=== PATIENT | male | born 1980 | race Caucasian/White ===

== ENCOUNTER → 2017-10-06 15:32 | Outpatient (CLI) | payer MEDICAID, SELFPAY ==
--- NOTE | 2017-10-06 15:43 | XR_ITS ---
XR chest 2V HISTORY: ITS.REASON: COUGH VITAMIN B12 DEFICENCY ORDERING PHYSICIAN: Darrion Arita MD PATIENT AGE: 36 years COMPARISON: 08/30/2014 FINDINGS: The cardiomediastinal silhouette and pulmonary vascularity are within normal limits. The lungs are clear without infiltrates, suspicious nodules, or pleural effusions. No acute bony abnormalities. IMPRESSION: Negative chest, no acute finding
[2017-10-06 16:13] LABS: Alanine Aminotransferase 77 U/L (12-78); Albumin Level 4.2 gm/dL (3.4-5.0); Albumin/Globulin Ratio 1.2 (1.1-1.8); Alkaline Phosphatase 96 U/L (46-116); Anion Gap 13.2 mEq/L (5-15); Aspartate Amino Transferase 38 U/L (15-37); Bilirubin,Total 0.7 mg/dL (0.2-1.0); Blood Urea Nitrogen 14 mg/dL (7-18); Calcium 9.4 mg/dL (8.5-10.1); Carbon Dioxide 28 mmol/L (21.0-32.0); Chloride 101 mmol/L (98-107); Creatinine,Serum 1.03 mg/dL (0.70-1.30); Estimated Glomerular Filt Rate 82 ml/min (>60); GFR (African American) 99 ML/MIN (>60); Globulin 3.6 gm/dl (1.3-3.2); Glucose 91 mg/dL (74-106); Potassium 4.2 mmoL/L (3.5-5.1); Sodium 138 mmol/L (136-145); Total Protein,Serum 7.8 gm/dL (6.4-8.2)
[2017-10-06 16:34] LABS: Basophils % 0.5 % (0.1-2.0); Eosinophils % 0.5 % (0.1-12.0); Hematocrit 54.1 % (42.0-52.0); Lymphocytes # 1.9 K/mm3 (0.7-4.5); Lymphocytes % 21.2 K/mm3 (10-50); Mean Corpuscular HGB Conc 34.7 g/dL (31.8-35.4); Mean Corpuscular Hemoglobin 32.4 pg (27.0-31.2); Mean Corpuscular Volume 93.2 fl (80-94); Mean Platelet Volume 7.6 fl (7.4-10.4); Monocytes # 0.7 K/mm3 (0.1-1.0); Monocytes % 8.1 % (1.7-9.3); Neutrophils # 6.2 K/mm3 (1.8-7.8); Neutrophils % 69.8 % (37.0-80.0); Platelet Count 289 K/mm3 (142-424); Red Cell Distribution Width 11.7 % (11.5-17.5); White Blood Count 8.8 K/mm3 (4.8-10.8)
[2017-10-06 16:35] LABS: Hemoglobin 18.6 g/dL (14.1-18.0)
[2017-10-10 15:37] LABS: Alpha-1-Antitrypsin 121 mg/dL (90-200); Vitamin B12 605 pg/mL (232-1245)
== END ==
PROVIDERS: PCP Internal Medicine Adolescent Medicine; Visit Provider Internal Medicine Adolescent Medicine
DX: R05 Cough (principal); E53.8 Deficiency of other specified B group vitamins; Z83.49 Family history of other endocrine, nutritional and metabolic diseases
CPT/HCPCS: 36415; 71046; 80053; 82103; 82607; 85025

== ENCOUNTER → 2018-04-11 17:18 | Outpatient (CLI) | payer MEDICAID, SELFPAY ==
[2018-04-11 17:34] LABS: Basophils # 0.1 K/mm3 (0-0.2); Basophils % 0.6 % (0.1-2.0); Eosinophils # 0.1 K/mm3 (0.0-0.4); Hematocrit 52.6 % (42.0-52.0); Hemoglobin 17.8 g/dL (14.1-18.0); Lymphocytes # 1.7 K/mm3 (0.7-4.5); Lymphocytes % 21.9 K/mm3 (10-50); Mean Corpuscular HGB Conc 33.9 g/dL (31.8-35.4); Mean Corpuscular Hemoglobin 31.6 pg (27.0-31.2); Mean Corpuscular Volume 93.2 fl (80-94); Monocytes # 0.6 K/mm3 (0.1-1.0); Monocytes % 7.3 % (1.7-9.3); Neutrophils # 5.2 K/mm3 (1.8-7.8); Neutrophils % 69.2 % (37.0-80.0); Platelet Count 266 K/mm3 (142-424); Red Blood Count 5.64 M/mm3 (4.60-6.20); Red Cell Distribution Width 12.3 % (11.5-17.5); White Blood Count 7.5 K/mm3 (4.8-10.8)
[2018-04-11 18:49] LABS: Alanine Aminotransferase 74 U/L (12-78); Albumin Level 4.2 gm/dL (3.4-5.0); Albumin/Globulin Ratio 1.4 (1.1-1.8); Alkaline Phosphatase 98 U/L (46-116); Anion Gap 13.3 mEq/L (5-15); Aspartate Amino Transferase 32 U/L (15-37); Bilirubin,Total 0.5 mg/dL (0.2-1.0); Blood Urea Nitrogen 11 mg/dL (7-18); Carbon Dioxide 29 mmol/L (21.0-32.0); Chloride 106 mmol/L (98-107); Creatinine,Serum 1.14 mg/dL (0.70-1.30); Estimated Glomerular Filt Rate 72 ml/min (>60); Free Thyroxine Index 2.8 ug/dL (5.93-13.13); GFR (African American) 87 ML/MIN (>60); Globulin 3.1 gm/dl (1.3-3.2); Glucose 80 mg/dL (74-106); Potassium 4.3 mmoL/L (3.5-5.1); Sodium 144 mmol/L (136-145); T4 (Thyroxine) 9.2 ug/dl (4.7-13.3); Thyroid Stimulating Hormone 3.93 uIU/ml (0.358-3.740); Total Protein,Serum 7.3 gm/dL (6.4-8.2); Triiodothryronine (T3) Uptake 30 % (31-39)
[2018-04-13 17:27] LABS: Testosterone,Total 268 ng/dL (264-916); Vitamin B12 397 pg/mL (232-1245); Vitamin D 25 Hydroxy 26.4 ng/mL (30.0-100.0)
== END ==
PROVIDERS: PCP Internal Medicine Adolescent Medicine; Visit Provider Internal Medicine Adolescent Medicine
DX: R06.81 Apnea, not elsewhere classified (principal); E66.01 Morbid (severe) obesity due to excess calories; R53.81 Other malaise; I10 Essential (primary) hypertension
CPT/HCPCS: 36415; 80053; 82607; 82652; 84403; 84436; 84443; 84479; 85025

== ENCOUNTER → 2018-04-26 19:57 | Outpatient (CLI) | payer MEDICAID, SELFPAY | PROVIDERS: PCP Internal Medicine Adolescent Medicine; Visit Provider Internal Medicine Adolescent Medicine | DX: G47.33 Obstructive sleep apnea (adult) (pediatric) (principal); I10 Essential (primary) hypertension; R06.83 Snoring; G25.81 Restless legs syndrome | CPT/HCPCS: 95810 ==

== ENCOUNTER 2020-03-02 03:21 | Emergency (ER) | payer BC, SELFPAY ==
[2020-03-02 03:33] VITALS: BP 152/98; PULSE 74; RESP 18; TEMP 36.6; O2SAT 96; BMI 34.4
--- NOTE | 2020-03-02 03:41 | CT_ITS ---
PROCEDURE: CT ABDOMEN PELVIS WO CON CLINICAL INDICATION: right flank pain Right flank pain COMPARISON: CT ABDPELWO CT abdomen pelvis wo con from 02/02/2018 TECHNIQUE: Axial images obtained with sagittal and coronal reformats. All CT scans at the facility use one or more dose reduction, viz: automated exposure control, ma/kV adjustment per patient size (including targeted exams where dose is matched to indication, i.e. head), or iterative reconstruction technique. FINDINGS: LOWER THORAX: No acute finding ABDOMEN & PELVIS: Prior cholecystectomy. The liver, spleen, adrenal glands, and pancreas have an unremarkable appearance. There is mild right hydronephrosis and hydroureter secondary to a 2 mm stone at the right ureterovesical junction. No evidence of appendicitis or intestinal obstruction or free air or diverticulitis. There is mild thickening of the descending colon. This could be due to nondistention or mild colitis. No acute bony findings. IMPRESSION: 2 mm right ureterovesical junction stone with mild right hydroureteronephrosis. Minimal thickening of the descending colon which may only be due to nondistention but could also be seen with mild colitis. Dictated by: Parmjit Nunez MD 03/02/2020 06:20 Parmjit Nunez MD in [place] 03/02/2020 06:20
[2020-03-02 03:51] LABS: Microscopic, Urine URINE MICROSCOPIC (MICROSCOPIC)
[2020-03-02 03:53] LABS: Basophils # 0.1 K/mm3 (0-0.2); Basophils % 0.7 % (0.1-2.0); Eosinophils # 0.2 K/mm3 (0.0-0.4); Eosinophils % 2.1 % (0.1-12.0); Hematocrit 48.7 % (42.0-52.0); Hemoglobin 17.1 g/dL (14.1-18.0); Lymphocytes % 27.4 % (10-50); Mean Corpuscular HGB Conc 35.2 g/dL (31.8-35.4); Mean Corpuscular Hemoglobin 33.4 pg (27.0-31.2); Mean Platelet Volume 7.3 fl (7.4-10.4); Monocytes # 0.6 K/mm3 (0.1-1.0); Monocytes % 8.3 % (1.7-9.3); Neutrophils # 4.6 K/mm3 (1.8-7.8); Neutrophils % 61.5 % (37.0-80.0); Platelet Count 233 K/mm3 (142-424); Red Blood Count 5.12 M/mm3 (4.60-6.20); Red Cell Distribution Width 12.4 % (11.5-17.5); White Blood Count 7.5 K/mm3 (4.8-10.8)
[2020-03-02 03:59] LABS: Appearance,Urine CLEAR (Clear); Bilirubin,Urine Negative (Negative); Blood, Urine 2+ (Negative); Color,Urine YELLOW (Yellow); Glucose,Urine (UA) Negative (Negative); Ketones,Urine Negative (Negative); Leukocyte Esterase,Urine Negative (Negative); Nitrate,Urine Negative (Negative); PH,Urine 6.5 (5.0-8.5); Protein,Urine Negative (Negative); Urobilinogen,Urine 0.2 EU/dl (0.2)
[2020-03-02 04:00] LABS: Chloride 106 mmol/L (98-107); Sodium 142 mmol/L (136-145)
[2020-03-02 04:02] LABS: Blood Urea Nitrogen 12 mg/dl (9-20); Creatinine Clearance Estimated 120 mL/min (50-200); Estimated Glomerular Filt Rate 67 ml/min (>60); GFR (African American) 82 ML/MIN (>60)
[2020-03-02 04:03] LABS: Alanine Aminotransferase 45 U/L (12-78); Albumin Level 4.1 g/dl (3.5-5.0); Albumin/Globulin Ratio 1.5 (1.1-1.8); Alkaline Phosphatase 73 U/L (38-126); Aspartate Amino Transferase 36 U/L (17-59); Bilirubin,Total 0.6 mg/dl (0.2-1.3); Calcium 9.4 mg/dl (8.4-10.2); Carbon Dioxide 27 mmol/L (22.0-30.0); Globulin 2.7 g/dL (1.3-3.2); Glucose 106 mg/dl (74-100); Total Protein,Serum 6.8 g/dl (6.3-8.2)
--- NOTE | 2020-03-02 04:04 | HMH.EDGENADL ---
ED Disposition Clinical Impression: Renal colic on right side Disposition: Home, Self-Care Condition on Discharge: Good Instructions: DI for Kidney Stones Additional Instructions: keep appt today with urology Referrals: Darrion Arita MD [Primary Care Provider] - - Critical Care Critical Care Time: No Attestation: On 03/02/20, the high probability of a clinically significant, sudden or life threatening deterioration of the following system(s) required my full and direct attention, intervention and personal management. The time I documented below is in addition to time spent performing reported procedures but includes the following listed in this critical care notation. Medical Decision Making - Medical Records Medical records reviewed: Yes: I reviewed the patient's medical records. - Vish Inquiry Pt receiving controlled substance: No Vital Signs: 03/02/20 03:33 Temperature 97.9 F Temperature Source Oral Pulse Rate [Right] 74 Respiratory Rate 18 Blood Pressure [Right Arm] 152/98 H Blood Pressure Mean [Right Arm] 116 Blood Pressure Source [Right Arm] Automatic Cuff Blood Pressure Position [Right Arm] Sitting 02 Sat by Pulse Oximetry 96 Oxygen Delivery Method Room Air - Lab Data Lab results reviewed: Yes: I reviewed the patient's lab results. Lab Results 03/02/20 03:34: Urine Color Yellow, Urine Appearance Clear, Urine pH 6.5, Ur Specific Fountain 1.020, Urine Protein Negative, Urine Glucose (UA) Negative, Urine Ketones Negative, Urine Blood 2+, Urine Nitrate Negative, Urine Bilirubin Negative, Urine Urobilinogen 0.2, Ur Leukocyte Esterase Negative 03/02/20 03:34: WBC 7.5, RBC 5.12, Hgb 17.1, Hct 48.7, MCV 95.0 H, MCH 33.4 H, MCHC 35.2, RDW 12.4, Plt Count 233, MPV 7.3 L, Neut % (Auto) 61.5, Lymph % (Auto) 27.4, Craven % (Auto) 8.3, Eos % (Auto) 2.1, Baso % (Auto) 0.7, Neut # (Auto) 4.6, Lymph # (Auto) 2.0, Craven # (Auto) 0.6, Eos # (Auto) 0.2, Baso # (Auto) 0.1 03/02/20 03:34: Sodium 142, Potassium 4.0, Chloride 106, Carbon Dioxide 27, Anion Gap 13.0, BUN 12, Creatinine 1.20, Estimated Creat Clear 120, Estimated GFR 67, Est GFR ( Amer) 82, Glucose 106 H, Calcium 9.4, Total Bilirubin 0.6, AST 36, ALT 45, Alkaline Phosphatase 73, C-Reactive Protein 10.8 H, Total Protein 6.8, Albumin 4.1, Globulin 2.7, Albumin/Globulin Ratio 1.5 Result diagrams: 03/02/20 03:34 03/02/20 03:34 Orders (Tests/Meds): ED MEDICATIONS Generic Name Dose Route Start Last Admin Trade Name Freq PRN Reason Stop Dose Admin Sodium Chloride 1,000 mls @ 999 mls/hr 03/02/20 03:45 03/02/20 03:47 Sod Chlor 0.9% 1000ml Bag IV 03/02/20 04:45 999 mls/hr .Q1H1M SHAUNNA Administration Sodium Chloride 10 ml 03/02/20 03:41 Sodium Chloride 0.9% 10ml Vial IV 04/01/20 03:40 NEEDED PRN to Dilute Lorazepam inj Discontinued Medications Generic Name Dose Route Start Last Admin Trade Name Freq PRN Reason Stop Dose Admin Lorazepam 0.5 mg 03/02/20 03:41 03/02/20 03:47 Ativan 2mg/Ml Vial IV 03/02/20 03:42 0.5 mg ONCE ONE Administration Morphine Sulfate 4 mg 03/02/20 03:41 03/02/20 03:47 Morphine 4mg/Ml Syringe IV 03/02/20 03:42 4 mg ONCE ONE Administration Ondansetron HCl 4 mg 03/02/20 03:41 03/02/20 03:47 Zofran 4mg/2ml Vial IV 03/02/20 03:42 4 mg ONCE ONE Administration ORDERS Category Date Time Status CT abdomen pelvis wo con Stat Cat Scan 03/02/20 03:41 Taken Complete Blood Count Auto Diff Stat Lab 03/02/20 03:34 Results Erythrocyte Sedimentation Rate Stat Lab 03/02/20 03:34 Results Urinalysis and Microscopic Stat Lab 03/02/20 03:34 Results - CT Data CT Scan: Abdomen, Pelvis Time Received: 04:[address] Reviewed: Yes: I have viewed the radiologist's interpretation Preliminary Findings: Abnormal General Adult HPI - General Chief complaint: PAIN Stated complaint: Pain in right kidney area,possible kidney stone Time Seen by Provider: 03/02/20 04:05
[2020-03-02 04:08] LABS: C-Reactive Protein 10.8 mg/L (0-4)
[2020-03-02 04:29] LABS: WBC,Urine Occasional #/hpf (0-3)
[2020-03-02 04:30] LABS: Bacteria,Urine Trace /lpf; Squamous Epithelial Cell,Urine Occasional #/hpf (0-5)
[2020-03-02 04:32] VITALS: BP 138/91; PULSE 70; RESP 17; TEMP 36.6; O2SAT 95
[2020-03-02 04:49] LABS: Erythrocyte Sedimentation Rate 19 mm/hr (0-15)
== END 2020-03-02 04:44 | disposition home or self-care (01) ==
PROVIDERS: Emergency Provider Emergency Medicine; PCP Internal Medicine Adolescent Medicine
DX: N13.2 Hydronephrosis with renal and ureteral calculous obstruction (principal); N20.1 Calculus of ureter; Z87.442 Personal history of urinary calculi; Z88.0 Allergy status to penicillin; Z88.2 Allergy status to sulfonamides
CPT/HCPCS: 74176; 80053; 81001; 85025; 85651; 86140; 96365; 96375; 99283; J2405

== ENCOUNTER → 2020-09-15 10:05 | Outpatient (CLI) | payer BC, SELFPAY ==
[2020-09-15 10:57] LABS: Alanine Aminotransferase 50 U/L (12-78); Albumin Level 4.7 g/dl (3.5-5.0); Albumin/Globulin Ratio 1.7 (1.1-1.8); Alkaline Phosphatase 80 U/L (38-126); Anion Gap 11.8 mEq/L (5-15); Aspartate Amino Transferase 42 U/L (17-59); Bilirubin,Total 0.6 mg/dl (0.2-1.3); Blood Urea Nitrogen 13 mg/dl (9-20); Calcium 9.9 mg/dl (8.4-10.2); Carbon Dioxide 28 mmol/L (22.0-30.0); Chloride 106 mmol/L (98-107); Chol/HDL Ratio 4.2 (1-3.5); Cholesterol 237 mg/dl (140-200); Estimated Glomerular Filt Rate 67 ml/min (>60); GFR (African American) 82 ML/MIN (>60); Globulin 2.7 g/dL (1.3-3.2); Glucose 123 mg/dl (74-100); HDL Cholesterol 57 mg/dl (40-60); Potassium 4.8 mmoL/L (3.5-5.1); Sodium 141 mmol/L (136-145); Total Protein,Serum 7.4 g/dl (6.3-8.2); Triglycerides 221 mg/dl (30-150); VLDL Cholesterol 44 mg/dL (0-40)
[2020-09-15 11:08] LABS: Direct LDL Cholesterol 142.21 mg/dL (100-129)
[2020-09-15 11:13] LABS: 25-OH Vitamin D, Total 20.3 ng/mL (30-100)
[2020-09-15 11:45] LABS: Vitamin B12 281 pg/mL (239-931)
[2020-09-15 17:09] LABS: Hemoglobin A1C 5.3 % (4.0-6.0)
== END ==
PROVIDERS: Internal Medicine Adolescent Medicine; Visit Provider Nurse Practitioner Family
DX: Z00.00 Encounter for general adult medical examination without abnormal findings (principal); R73.9 Hyperglycemia, unspecified; R20.2 Paresthesia of skin; E55.9 Vitamin D deficiency, unspecified
CPT/HCPCS: 36415; 80053; 80061; 82306; 82607; 83036; 84443

== ENCOUNTER 2020-09-21 13:43 | Outpatient (RCR) | payer BC, SELFPAY ==
--- NOTE | 2020-09-21 14:31 | HMH.OTOPEV ---
OT Inpatient Evaluation Rehab OT Outpatient Eval Start: 09/21/20 14:18 Freq: Status: Active Protocol: Document 09/21/20 14:18 RMARSHALL (Rec: 09/21/20 14:30 RMARSHALL [id number]) Electronically Signed By Willie Hinton OT 09/21/20 14:18 Outpatient Therapy Subjective History Subjective History Pt is a 39 year old male who reports to therapy for initial evaluation to left shoulder. Pt reports he began having pain at left shoulder ~3 months ago. He does not remember a specific injury causing his pain to begin. 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 Pt explains he does not feel pain at all times, but has a sharp pain when he moves it a certain way. Pt does demonstrate with slight decrease in AROM/strength of left shoulder. Pt will continue to be seen in order to address all deficits. Chief Complaint Pain,Weakness Symptom Type Ache,Sharp Symptoms Relieved By Nothing Symptoms Aggravated By Physical Activity,Lifting Prior Functional Limitations None Current Functional Limitations Reaching,Lifting,Sleeping, Recreation Activity Symptom Description Intermittent,Pain at Rest, Activity Dependent Level of pain today (0-10) 1 Pain scale - at its best (0-10) 1 Pain scale - at its worst (0-10) 6 Shoulder/Elbow Eval Shoulder Objective Measurements Shoulder ROM Left Shoulder Abduction Active Range of 109 degrees Motion (degrees) Shoulder Flexion Active Range of Motion 131 degrees (degrees) Query Text: Shoulder External Rotation Active Range 58 degrees of Motion (degrees) Shoulder Internal Rotation Active Range 68 degrees of Motion (degrees) pain with active ROM shoulder exam left standard pain with passive ROM shoulder exam left standard decreased ROM shoulder exam standard left Shoulder MMT Shoulder Abduction Strength Grade 3 Fair Shoulder Extension Strength Grade 3 Fair Shoulder Flexion Strength Grade 3 Fair Shoulder External Rotation Strength 3 Fair
== END 2020-09-21 13:45 | disposition home or self-care (01) ==
LOC: OT 13:43
PROVIDERS: PCP Internal Medicine Adolescent Medicine; Visit Provider Nurse Practitioner Family
DX: M25.512 Pain in left shoulder (principal)
CPT/HCPCS: 97014; 97110; 97166; G0283

== ENCOUNTER 2020-09-26 20:31 | Emergency (ER) | payer BC, SELFPAY ==
[2020-09-26 20:35] VITALS: BP 139/76; PULSE 98; RESP 19; TEMP 37.1; O2SAT 98; BMI 33.4
--- NOTE | 2020-09-26 20:53 | HMH.EDUTC ---
[facility] [place] Disposition Clinical Impression: Bronchitis Sinusitis Qualifiers: Sinusitis location: unspecified location Chronicity: unspecified Qualified Code(s): J32.9 - Chronic sinusitis, unspecified Disposition: Home, Self-Care Condition on Discharge: Good Instructions: Sinusitis, Acute Bronchitis, DI for Sinusitis, Levofloxacin Additional Instructions: ? Start antibiotic today. Be sure to complete entire prescription even if feeling better ? Monitor temp. Tylenol every 4 hours as needed and / or ibuprofen every 6 hours as needed ( As long as your primary care physician has told you that it ok to take both. For fever/aches/pains ER if no less than 101 despite Tylenol or Motrin ? Humidifier/vaporizer or hot steamy shower ? Inhaler every 4-6 hours as needed like we discussed. If unsure how to use it, ask pharmacist to demonstrate how. Should help open airways and improve cough, wheezing, and shortness of breath ? Mucinex during the day for your cough and cough suppressant only at night. Be sure to drink lots of water. Insurance may not cover a prescriptions for mucinex. Might be cheaper to get 400mg tablets and take 2 tablet in the morning, mid-day and evening with lots of water. Start steroid today. Helps with inflammation therefore, cough and wheezing. Follow directions on the package. Reviewed side effects. Patient reports taking them before. Follow up IMMEDIATELY for new or worsening of symptoms OR no noticeable improvement over the next 48-72 hours. 911 immediately for any life threatening symptoms such as chest pain or difficulty breathing Prescriptions: Albuterol Sulfate [Proventil-HFA 90mcg/puff Inh] 1 - 2 puffs IH Q4HP PRN #1 inh PRN Reason: Wheezing Transmission Status: Received by [id number] predniSONE [Deltasone 10mg tablet] 10 mg PO BID 5 Days #10 tab Transmission Status: Received by [id number] levoFLOXacin [Levaquin 500mg tab] 500 mg PO DAILY 10 Days #10 tab Transmission Status: Received by [id number] Referrals: Darrion Arita MD [Primary Care Provider] - As needed Time of Disposition: 21:16 Medical Decision Making - Vish Inquiry Pt receiving controlled substance: No Vish was queried for this patient: No Vital Signs: 09/26/20 20:35 09/26/20 21:28 Temperature 98.8 F 98.8 F Temperature Source Oral Pulse Rate 98 H Pulse Rate [Right Brachial] 98 H Respiratory Rate 19 19 Blood Pressure 139/76 Blood Pressure [Right Arm] 139/76 Blood Pressure Mean [Right Arm] 97 Blood Pressure Source [Right Arm] Automatic Cuff Blood Pressure Position [Right Arm] Sitting 02 Sat by Pulse Oximetry 98 Oxygen Delivery Method Room Air Orders (Tests/Meds): ED MEDICATIONS Discontinued Medications Generic Name Dose Route Start Last Admin Trade Name Enrique PRN Reason Stop Dose Admin Levofloxacin 500 mg 09/26/20 21:14 09/26/20 21:33 Levofloxacin 500mg Tab PO 09/26/20 21:15 500 mg ONCE ONE Administration Protocol Prednisone 10 mg 09/26/20 21:14 09/26/20 21:33 Prednisone 10mg Tab PO 09/26/20 21:15 10 mg ONCE ONE Administration Medical Decision Narrative: Medication discussed with pharmacy due to allergies [facility] [place] HPI - General Stated complaint: congestion,cough Time Seen by Provider: 09/26/20 20:53 Mode of Arrival: Ambulatory Source of Information: Patient Limitations: No Limitations Description of Symptoms (Recalled from Triage Doc. by RN): PATIENT C/O COUGH, CONGESTION, WHEEZING, SOA, AND TIGHTNESS IN CHEST SINCE MONDAY HEENT Symptoms (Recalled from RN notes): Yes Resp Symptoms (Recalled from RN notes): Yes Skin Symptoms (Recalled from RN notes): No MS Symptoms (Recalled from RN notes): No Functional Status (Recalled from RN notes): WNL - History of Present Illness Provider Complaint: Patient states that he hasnt felt well for a couple of days State that he has been having sinus pain and pressure for over a week but for the last
[2020-09-26 21:28] VITALS: BP 139/76; PULSE 98; RESP 19; TEMP 37.1; O2SAT 98
== END 2020-09-26 21:30 | disposition home or self-care (01) ==
PROVIDERS: Emergency Provider Nurse Practitioner; PCP Internal Medicine Adolescent Medicine
DX: J20.9 Acute bronchitis, unspecified (principal); J32.9 Chronic sinusitis, unspecified
CPT/HCPCS: 99202; G0463

== ENCOUNTER 2021-02-22 15:14 | Emergency (ER) | payer BC, SELFPAY ==
[2021-02-22 16:20] VITALS: BP 134/85; PULSE 72; RESP 19; TEMP 36.9; O2SAT 98; BMI 32.3
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
[2021-02-22 17:58] VITALS: BP 134/85; PULSE 72; RESP 19; TEMP 36.9; O2SAT 98
== END 2021-02-22 18:00 | disposition home or self-care (01) ==
PROVIDERS: Emergency Provider Nurse Practitioner; PCP Internal Medicine Adolescent Medicine
DX: S05.42XA Penetrating wound of orbit with or without foreign body, left eye, initial encounter (principal); W29.8XXA Contact with other powered hand tools and household machinery, initial encounter; Y92.89 Other specified places as the place of occurrence of the external cause; Z23 Encounter for immunization; Z88.0 Allergy status to penicillin; Z88.2 Allergy status to sulfonamides
CPT/HCPCS: 12011; 70200; 90471; 90715; 99202; G0463

== ENCOUNTER → 2021-03-08 14:03 | Outpatient (CLI) | payer BC, SELFPAY ==
--- NOTE | 2021-03-08 14:11 | XR_ITS ---
PROCEDURE: XR SHOULDER LT MIN 2V CLINICAL INDICATION: LT SHOULDER PAIN COMPARISON: No exams were available for comparison FINDINGS: No fracture or dislocation. No lytic or blastic change. There is normal mineralization. The joint spaces are well-preserved. No significant degenerative/arthritic changes. No erosive changes evident. Other findings:None. IMPRESSION: No acute findings. Dictated by: Parmjit Nunez MD 03/08/2021 14:39 Parmjit Nunez MD in [place] 03/08/2021 14:39
== END ==
PROVIDERS: PCP Nurse Practitioner Family; Visit Provider Nurse Practitioner Family
DX: M25.512 Pain in left shoulder (principal)
CPT/HCPCS: 73030

== ENCOUNTER 2021-07-28 17:45 | Emergency (ER) | payer BC, SELFPAY ==
[2021-07-28 19:41] VITALS: BP 120/78; PULSE 89; RESP 18; TEMP 38.4; O2SAT 98; BMI 32.2
--- NOTE | 2021-07-28 20:06 | HMH.EDUTC ---
[facility] Disposition Clinical Impression: Viral syndrome, Exposure to COVID-19 virus Disposition: Home, Self-Care Condition on Discharge: Good Instructions: DI for Viral Syndrome, DI for COVID-19 (Suspected or Confirmed ), Preventing the Spread of Coronavirus Discharge Instructions Additional Instructions: Drink plenty of fluids. Take tylenol or ibuprofen for pain or fever. Take the medications as directed. Follow up with your regular doctor. GO TO THE ER FOR ANY WORSENING SYMPTOMS Quarantine until you know the results of your covid-19 test. Notify your school or workplace of your results and follow their instructions regarding return to work/school. The cough medication (promethazine dm) will make you drowsy, so don't drive or operate heavy machinery after taking it. Prescriptions: Promethazine/Dextromethorphan [Promethazine-Dm Syrup] 5 ml PO Q6HP PRN #240 ml PRN Reason: Cough Transmission Status: Pending to [id number] methylPREDNISolone [Medrol] 4 mg PO DIRECTED 6 Days #21 packet Transmission Status: Pending to [id number] Referrals: Dilcia Montesinos APRN [Primary Care Provider] - Forms: Work/School Release Time of Disposition: 20:20 Medical Decision Making - Medical Records Medical records reviewed: No: I reviewed the patient's medical records. - Vish Inquiry Pt receiving controlled substance: No Vital Signs: 07/28/21 19:41 Temperature 101.2 F H Temperature Source Oral Pulse Rate [Left] 89 Respiratory Rate 18 Blood Pressure [Right Arm] 120/78 Blood Pressure Mean [Right Arm] 92 02 Sat by Pulse Oximetry 98 - Lab Data Lab results reviewed: Yes: I reviewed the patient's lab results. Lab Results 07/28/21 19:44: Group A Strep Rapid Negative Orders (Tests/Meds): ED MEDICATIONS Discontinued Medications Generic Name Dose Route Start Last Admin Trade Name Freq PRN Reason Stop Dose Admin Ibuprofen 800 mg 07/28/21 19:47 07/28/21 19:48 Ibuprofen 400 Mg Tablet PO 07/28/21 19:48 800 mg ONCE ONE Administration ORDERS Category Date Time Status Covid-19 Nasal PCR ([facility]) Routine Lab 07/28/21 19:44 Received Rapid Strep Scrn Group A [Strep Scrn Group A (Rapid)] Lab 07/28/21 19:44 Received Stat [facility] HPI - General Stated complaint: treated for symptoms/covid test Time Seen by Provider: 07/28/21 20:06 Mode of Arrival: Ambulatory Source of Information: Patient Limitations: No Limitations Description of Symptoms (Recalled from Triage Doc. by RN): pt c/o myalgia, fever, cough, chills, and n/v/d x4 days. HEENT Symptoms (Recalled from RN notes): No Resp Symptoms (Recalled from RN notes): Yes (cough) Skin Symptoms (Recalled from RN notes): No MS Symptoms (Recalled from RN notes): No Functional Status (Recalled from RN notes): wnl - History of Present Illness Provider Complaint: He states that since yestreday he has had body aches, cough, chest congestion and fever. - Related Data Home Medications Medication Instructions Recorded Confirmed Omeprazole [Omeprazole 20mg 20 mg PO DAILY 02/02/18 03/02/20 Capsule] Ketorolac Tromethamine [Toradol 10 mg PO Q6H 03/02/20 03/02/20 10mg tablet] Tamsulosin HCl [Flomax 0.4mg 0.4 mg PO HS 03/02/20 03/02/20 capsule] Previous Rx's Medication Instructions Recorded Albuterol Sulfate [Proventil-HFA 1 - 2 puffs IH Q4HP PRN #1 inh 09/26/20 90mcg/puff Inh] levoFLOXacin [Levaquin 500mg 500 mg PO DAILY 10 Days #10 tab 09/26/20 tab] predniSONE [Deltasone 10mg tablet] 10 mg PO BID 5 Days #10 tab 09/26/20 Promethazine/Dextromethorphan 5 ml PO Q6HP PRN #240 ml 07/28/21 [Promethazine-Dm Syrup] methylPREDNISolone [Medrol] 4 mg PO DIRECTED 6 Days #21 07/28/21 packet Allergies Allergy/AdvReac Type Severity Reaction Status Date / Time erythromycin base Allergy Unknown Verified 02/02/18 00:29 [ERYTHROMYCIN BASE] Penicillins [PENICILLINS] Allergy
[2021-07-28 20:16] LABS: Strep Scrn Group A (Rapid) Negative (Negative)
[2021-07-28 20:19] LABS: UTC Influenza A Antigen Negative (Negative); UTC Influenza B Antigen Negative (Negative)
[2021-07-28 20:27] VITALS: BP 120/78; PULSE 89; RESP 18; TEMP 37.6
== END 2021-07-28 20:30 | disposition home or self-care (01) ==
PROVIDERS: Emergency Provider Nurse Practitioner Family; PCP Nurse Practitioner Family
DX: U07.1 COVID-19 (principal)
CPT/HCPCS: 87430; 87804; 99203; C9803; G0463; U0003; U0005

== ENCOUNTER 2021-12-17 09:57 | Emergency (ER) | payer BC, SELFPAY ==
[2021-12-17 10:00] VITALS: BP 127/69; PULSE 88; RESP 18; TEMP 37.4; O2SAT 95; BMI 28.7
[2021-12-17 10:23] VITALS: BP 127/69; PULSE 88; RESP 18; TEMP 37.4; O2SAT 95
--- NOTE | 2021-12-17 10:24 | HMH.EDUTC ---
[facility] [place] Disposition Clinical Impression: Bronchitis Sinusitis Qualifiers: Sinusitis location: unspecified location Chronicity: acute Recurrence: non-recurrent Qualified Code(s): J01.90 - Acute sinusitis, unspecified Disposition: Home, Self-Care Condition on Discharge: Good Instructions: DI for Sinusitis, DI for Acute Bronchitis Additional Instructions: Drink plenty of fluids. Take tylenol or ibuprofen for pain or fever. Take the medications as directed. Follow up with your regular doctor. GO TO THE ER FOR ANY WORSENING SYMPTOMS Quarantine until you know the results of your covid-19 test. Notify your school or workplace of your results and follow their instructions regarding return to work/school. Don't start the oral steroids until tomorrow, since you had the shot here today. The liquid cough medication (promethazine dm) will make you drowsy, so don't drive or operate heavy machinery after taking it. Prescriptions: Promethazine/Dextromethorphan [Promethazine-Dm Syrup] 5 ml PO Q6HP PRN #240 ml PRN Reason: Cough Transmission Status: Received by [id number] Benzonatate [Benzonatate 100mg cap] 100 mg PO TIDP PRN #30 cap PRN Reason: Cough Transmission Status: Received by [id number] methylPREDNISolone [Medrol] 4 mg PO DIRECTED 6 Days #21 packet Transmission Status: Received by [id number] Cefdinir [Omnicef 300mg Capsule] 300 mg PO BID #20 cap Transmission Status: Received by [id number] Referrals: Dilcia Montesinos APRN [Primary Care Provider] - Time of Disposition: 10:47 Medical Decision Making - Medical Records Medical records reviewed: No: I reviewed the patient's medical records. - Vish Inquiry Pt receiving controlled substance: No Vital Signs: 12/17/21 10:00 12/17/21 10:23 Temperature 99.4 F 99.4 F Temperature Source Oral Pulse Rate 88 Pulse Rate [Right Brachial] 88 Respiratory Rate 18 18 Blood Pressure 127/69 Blood Pressure [Right Arm] 127/69 Blood Pressure Mean [Right Arm] 88 Blood Pressure Source [Right Arm] Automatic Cuff Blood Pressure Position [Right Arm] Sitting 02 Sat by Pulse Oximetry 95 Oxygen Delivery Method Room Air Orders (Tests/Meds): ED MEDICATIONS Discontinued Medications Generic Name Dose Route Start Last Admin Trade Name Enrique PRN Reason Stop Dose Admin Dexamethasone Sodium Phosphate 8 mg 12/17/21 10:18 12/17/21 10:23 Dexamethasone 4mg/Ml 1ml Vial IM 12/17/21 10:19 8 mg ONCE ONE Administration ORDERS Category Date Time Status Full Resp Panel w/COVID ([facility] [place]) Routine Lab 12/17/21 10:07 Received [facility] [place] HPI - General Stated complaint: congestion, sore throat, body aches Time Seen by Provider: 12/17/21 10:10 Mode of Arrival: Ambulatory Source of Information: Patient Limitations: No Limitations Description of Symptoms (Recalled from Triage Doc. by RN): PATIENT C/O COUGH, SNEEZING, BODY ACHES, SORE THROAT, AND CONGESTION SINCE MONDAY HEENT Symptoms (Recalled from RN notes): Yes Resp Symptoms (Recalled from RN notes): Yes Skin Symptoms (Recalled from RN notes): No MS Symptoms (Recalled from RN notes): No Functional Status (Recalled from RN notes): WNL - History of Present Illness Provider Complaint: He states that for the past 3 days he has had sinus congestion, malaise, sinus drainage. He came in today because he has started having body aches, chills, and worsening chest congestion. He had covid-19 about 6 weeks ago and he does not feel like he felt when he had that, but he would like to be tested just in case. - Related Data Home Medications Medication Instructions Recorded Confirmed Omeprazole [Omeprazole 20mg 20 mg PO DAILY 02/02/18 03/02/20 Capsule] Ketorolac Tromethamine [Toradol 10 mg PO Q6H 03/02/20 03/02/20 10mg tablet] Tamsulosin HCl [Flomax 0.4mg 0.4 mg PO HS 03/02/20 03/02/20 capsule] Previous Rx's Medication Instru
[2021-12-17 10:26] LABS: Adenovirus,PCR Not Detected (NotDetected); Bordetella Pertussis Not Detected (NotDetected); Chlamydophila Pneumoniae, PCR Not Detected (NotDetected); Coronavirus 229E Not Detected (NotDetected); Coronavirus NL63 Not Detected (NotDetected); Coronavirus OC43 Not Detected (NotDetected); Coronovirus HKU1,PCR Not Detected (NotDetected); Human Metapneumovirus Not Detected (NotDetected); Influenza A, PCR Not Detected (NotDetected); Influenza AH1, 2009 Not Detected (NotDetected); Influenza AH1, PCR Not Detected (NotDetected); Influenza AH3,PCR Not Detected (NotDetected); Influenza B, PCR Not Detected (NotDetected); Mycoplasma Pneumoniae, PCR Not Detected (NotDetected); Parainfluenza 1, PCR Not Detected (NotDetected); Parainfluenza 2, PCR Not Detected (NotDetected); Parainfluenza 3, PCR Not Detected (NotDetected); Parainfluenza 4, PCR Not Detected (NotDetected); Respiratory Syncytial Virus Not Detected (NotDetected); Rhinovirus/Enterovirus Not Detected (NotDetected)
[2021-12-17 13:21] LABS: Coronavirus 19, PCR Detected (NotDetected)
== END 2021-12-17 10:50 | disposition home or self-care (01) ==
PROVIDERS: Emergency Provider Nurse Practitioner Family; PCP Nurse Practitioner Family
DX: J40 Bronchitis, not specified as acute or chronic (principal); J01.90 Acute sinusitis, unspecified; Z88.0 Allergy status to penicillin; Z88.1 Allergy status to other antibiotic agents; Z88.2 Allergy status to sulfonamides; Z88.6 Allergy status to analgesic agent
CPT/HCPCS: 87581; 87632; 87798; 96372; 99212; C9803; G0463; U0003; U0005

== ENCOUNTER 2022-07-12 11:37 | Emergency (ER) | payer BC, SELFPAY ==
[2022-07-12 11:46] VITALS: BP 125/80; PULSE 100; RESP 21; TEMP 36.6; O2SAT 100; BMI 24.3
--- NOTE | 2022-07-12 11:57 | EXP.UTC ---
Discharge Plan Disposition Patient Disposition: Home, Self-Care Condition: Good Prescriptions Prescriptions: New benzonatate 100 mg capsule 100 mg PO TID PRN (Reason: cough) Qty: 30 0RF prednisone [prednisone] 20 mg tablet 20 mg PO BID 5 Days Qty: 10 0RF cefdinir 300 mg capsule 300 mg PO BID Qty: 20 0RF albuterol sulfate [Proventil HFA] 90 mcg/actuation HFA aerosol inhaler 1 inh inhalation Q6H PRN (Reason: shortness of breath or wheezing) Qty: 8.5 0RF No Action escitalopram oxalate [Lexapro] 20 mg tablet 20 mg PO DAILY buspirone 10 mg tablet 10 mg PO BID PRN (Reason: Anxiety) Label Comments: TAKE 1 TABLET BY MOUTH TWICE DAILY NEEDED Referrals Follow up/Referrals: Darrion Arita MD [Primary Care Provider] - See instructions Activity Restrictions/Add. Instructions Additional Instructions/Restrictions: Start antibiotic today. Be sure to complete entire prescription even if feeling better Monitor temp. Tylenol every 4 hours as needed and / or ibuprofen every 6 hours as needed ( As long as your primary care physician has told you that it ok to take both. For fever/aches/pains ER if no less than 101 despite Tylenol or Motrin Humidifier/vaporizer or hot steamy shower Inhaler every 4-6 hours as needed like we discussed. If unsure how to use it, ask pharmacist to demonstrate how. Should help open airways and improve cough, wheezing, and shortness of breath *Tessalon Perles will not cause drowsiness but use at bedtime to help stop cough so that you may get some rest. *Start steroid today. Helps with inflammation therefore, cough and wheezing. Follow directions on the package. Reviewed side effects. Patient reports taking them before. Follow up IMMEDIATELY for new or worsening of symptoms OR no noticeable improvement over the next 48-72 hours. 911 immediately for any life threatening symptoms such as chest pain or difficulty breathing Clinical Impressions Clinical Impression: Bronchitis, Sinusitis Stand Alone Forms Stand Alone Forms: Work/School Release Discharge ED Provider: Divina Beckwith [facility] [place] General Stated complaint: SOA, Drainage Mode of Arrival: Ambulatory Source of Information: Patient Time Seen by Provider: 07/12/22 11:57 Description of Symptoms (Recalled from Triage Doc. by RN): congestion, TAN, drainage, non productive cough HEENT Symptoms (Recalled from RN notes): Yes Resp Symptoms (Recalled from RN notes): Yes Skin Symptoms (Recalled from RN notes): No MS Symptoms (Recalled from RN notes): No Functional Status (Recalled from RN notes): n/a History of Present Illness Provider Complaint: Patient states that he has been having sinus pain and pressure with drainage in the back of his throat, states that he feels like it is trying to move into his chest States that he has had a cough but not coughing anything up States felt like it was getting worse so he came in Related Data Home Medications Medication Instructions Recorded Confirmed buspirone 10 mg tablet 10 mg PO BID PRN Anxiety 07/12/22 07/12/22 escitalopram oxalate 20 mg tablet 20 mg PO DAILY Depression 07/12/22 07/12/22 (Lexapro) Previous Rx's Medication Instructions Recorded albuterol sulfate 90 mcg/actuation 1 inh inhalation Q6H PRN shortness 07/12/22 aerosol inhaler (Proventil HFA) of breath or wheezing #8.5 grams benzonatate 100 mg capsule 100 mg PO TID PRN cough #30 caps 07/12/22 cefdinir 300 mg capsule 300 mg PO BID #20 caps 07/12/22 prednisone 20 mg tablet 20 mg PO BID 5 days #10 tabs 07/12/22 Allergies Allergy/AdvReac Type Severity Reaction Status Date / Time erythromycin base Allergy Unknown Verified 07/12/22 11:49 [ERYTHROMYCIN BASE] Penicillins [PENICILLINS] Allergy Unknown Verified 07/12/22 11:49 Sulfa (Sulfonamide Allergy Unknown Verified 07/12/22 11:49 Antibiotics) [SULFA (SULFONAMIDE ANTIBIOTIC
[2022-07-12 12:16] VITALS: BP 125/80; PULSE 100; RESP 21; TEMP 36.6; O2SAT 100
== END 2022-07-12 12:15 | disposition home or self-care (01) ==
PROVIDERS: Emergency Provider Nurse Practitioner; PCP Internal Medicine Adolescent Medicine
DX: J40 Bronchitis, not specified as acute or chronic (principal); J32.9 Chronic sinusitis, unspecified
CPT/HCPCS: 99212; 99213; C9803; G0463; U0003; U0005

== ENCOUNTER 2022-09-26 09:39 | Emergency (ER) | payer BC, SELFPAY ==
[2022-09-26 09:45] VITALS: BP 133/88; PULSE 91; RESP 20; TEMP 36.8; O2SAT 100; BMI 25.6
--- NOTE | 2022-09-26 10:03 | EXP.UTC ---
Discharge Plan Disposition Patient Disposition: Home, Self-Care Condition: Good Prescriptions Prescriptions: New cefdinir 300 mg capsule 300 mg PO BID Qty: 20 0RF guaifenesin [Mucinex] 600 mg tablet extended release 12hr 1,200 mg PO BID PRN (Reason: cough) Qty: 20 0RF methylprednisolone [Medrol (Kar)] 4 mg tablets,dose pack See Rx Instructions .Route .COMPLEX 6 Days Qty: 21 0RF Rx Instructions: taper pack; gentamicin 0.3 % drops 2 drp ophthalmic (eye) Q4H 7 Days Qty: 5 0RF Rx Instructions: in left eye while awake No Action buspirone 10 mg tablet 10 mg PO BID PRN (Reason: Anxiety) Qty: 60 2RF escitalopram oxalate [Lexapro] 20 mg tablet 20 mg PO DAILY Qty: 90 0RF albuterol sulfate [Proventil HFA] 90 mcg/actuation HFA aerosol inhaler 1 inh inhalation Q6H PRN (Reason: shortness of breath or wheezing) Qty: 8.5 0RF Referrals Follow up/Referrals: Darrion Arita MD [Primary Care Provider] - See instructions Activity Restrictions/Add. Instructions Additional Instructions/Restrictions: *Monitor Temp, Over the counter Motrin or Tylenol as directed/as needed Tylenol every 4 hours and Motrin every 6 hours (as long as your family doctor has told you that you can take it) for fever or pain. and straight to ER if unable to lower temp less than 101.0 after medication given *Warm salt water gargles may help to soothe the throat *Throat Lozenges? *Warm fluids like tea with honey may help to soothe the throat? *Sleep elevated *Humidifier/Vaporizer Wash hands well before and after applying eye drops Follow up IMMEDIATELY for new or worsening symptoms or no Noticeable improvement over the next 48-72 hours. 911 for difficulty breathing or swallowing Clinical Impressions Clinical Impression: Sinusitis, Conjunctivitis Stand Alone Forms Stand Alone Forms: Work/School Release Instructions Patient Instructions: DI for Sinusitis, Sinusitis, Conjunctivitis, DI for Conjunctivitis Discharge ED Provider: Divina Beckwith [facility] [place] HPI General Stated complaint: stuffy,cough,no voice Mode of Arrival: Ambulatory Source of Information: Patient Limitations: No Limitations Time Seen by Provider: 09/26/22 10:03 Description of Symptoms (Recalled from Triage Doc. by RN): cough, chills, sinus pressure, left eye discharge. HEENT Symptoms (Recalled from RN notes): Yes Resp Symptoms (Recalled from RN notes): No Skin Symptoms (Recalled from RN notes): No MS Symptoms (Recalled from RN notes): No Functional Status (Recalled from RN notes): n/a History of Present Illness Provider Complaint: Patient states that for about a week he has been having sinus pain and pressure, cough, chills, and over all not feeling well States that at times he is coughing up some mucous, States that this morning he woke up with his left eye matted shut with redness and drainage and barely able to talk States that he feels like he may have a sinus infection Related Data Previous Rx's Medication Instructions Recorded albuterol sulfate 90 mcg/actuation 1 inh inhalation Q6H PRN shortness 07/12/22 aerosol inhaler (Proventil HFA) of breath or wheezing #8.5 grams buspirone 10 mg tablet 10 mg PO BID PRN Anxiety #60 tabs 08/25/22 escitalopram oxalate 20 mg tablet 20 mg PO DAILY Depression #90 tabs 08/25/22 (Lexapro) cefdinir 300 mg capsule 300 mg PO BID #20 caps 09/26/22 gentamicin 0.3 % eye drops 2 drp ophthalmic (eye) Q4H 7 days 09/26/22 #5 mL guaifenesin 600 mg tablet, 1,200 mg PO BID PRN cough #20 tabs 09/26/22 extended release 12 hr (Mucinex) methylprednisolone 4 mg tablets in See Rx Instructions .Route 09/26/22 a dose pack (Medrol (Kar)) .COMPLEX 6 days #21 tabs Allergies Allergy/AdvReac Type Severity Reaction Status Date / Time erythromycin base Allergy Unknown Verified 09/26/22 09:53 [ERYTHROMYCIN BASE] Penicillins [PENICILLINS] Allergy Unknown Verified 09/26/22 09:53 Sulfa ([place]
[2022-09-26 10:23] VITALS: BP 133/88; PULSE 91; RESP 20; TEMP 36.8; O2SAT 100
== END 2022-09-26 10:23 | disposition home or self-care (01) ==
PROVIDERS: Emergency Provider Nurse Practitioner; PCP Internal Medicine Adolescent Medicine
DX: J01.90 Acute sinusitis, unspecified (principal); H10.32 Unspecified acute conjunctivitis, left eye
CPT/HCPCS: 99212; 99214; G0463

== ENCOUNTER 2022-11-09 12:03 | Emergency (ER) | payer BC, SELFPAY ==
[2022-11-09 12:18] VITALS: BP 130/78; PULSE 82; RESP 18; TEMP 37.1; O2SAT 98; BMI 26.1
--- NOTE | 2022-11-09 12:20 | EXP.UTC ---
Discharge Plan Disposition Patient Disposition: Home, Self-Care Condition: Good Prescriptions Prescriptions: New doxycycline hyclate 100 mg tablet 100 mg PO BID 7 Days Qty: 14 0RF methylprednisolone [Medrol (Kar)] 4 mg tablets,dose pack See Rx Instructions .Route .COMPLEX 6 Days Qty: 21 0RF Rx Instructions: taper pack; No Action buspirone 10 mg tablet 10 mg PO BID PRN (Reason: Anxiety) Qty: 60 2RF escitalopram oxalate [Lexapro] 20 mg tablet 20 mg PO DAILY Qty: 90 0RF albuterol sulfate [Proventil HFA] 90 mcg/actuation HFA aerosol inhaler 1 inh inhalation Q6H PRN (Reason: shortness of breath or wheezing) Qty: 8.5 0RF cefdinir 300 mg capsule 300 mg PO BID Qty: 20 0RF guaifenesin [Mucinex] 600 mg tablet extended release 12hr 1,200 mg PO BID PRN (Reason: cough) Qty: 20 0RF methylprednisolone [Medrol (Kar)] 4 mg tablets,dose pack See Rx Instructions .Route .COMPLEX 6 Days Qty: 21 0RF Rx Instructions: taper pack; gentamicin 0.3 % drops 2 drp ophthalmic (eye) Q4H 7 Days Qty: 5 0RF Rx Instructions: in left eye while awake Referrals Follow up/Referrals: Darrion Arita MD [Primary Care Provider] - See instructions Activity Restrictions/Add. Instructions Additional Instructions/Restrictions: *Monitor Temp, Over the counter Motrin or Tylenol as directed/as needed Tylenol every 4 hours and Motrin every 6 hours (as long as your family doctor has told you that you can take it) for fever or pain. and straight to ER if unable to lower temp less than 101.0 after medication given *Warm salt water gargles may help to soothe the throat *Throat Lozenges? *Warm fluids like tea with honey may help to soothe the throat? *Sleep elevated *Humidifier/Vaporizer Take medication as prescribed Follow up IMMEDIATELY for new or worsening symptoms or no Noticeable improvement over the next 48-72 hours. 911 for difficulty breathing or swallowing Clinical Impressions Clinical Impression: Sinusitis Qualifiers: Sinusitis location: unspecified location Chronicity: unspecified Qualified Code(s): J32.9 - Chronic sinusitis, unspecified Stand Alone Forms Stand Alone Forms: Work/School Release Instructions Patient Instructions: Sinusitis, DI for Sinusitis Discharge ED Provider: Divina Beckwith [facility] [place] HPI General Stated complaint: congestion, sinus pressure, cough Mode of Arrival: Ambulatory Source of Information: Patient Limitations: No Limitations Time Seen by Provider: 11/09/22 12:20 Description of Symptoms (Recalled from Triage Doc. by RN): pt c/o a cough, sore throat, nasal drainage and since pressure x2 days. HEENT Symptoms (Recalled from RN notes): Yes Resp Symptoms (Recalled from RN notes): Yes Skin Symptoms (Recalled from RN notes): No MS Symptoms (Recalled from RN notes): No Functional Status (Recalled from RN notes): wnl History of Present Illness Provider Complaint: Patient states that he has been having sinus pain and pressure for over a week and has been taking OTC medications but hasnt helped much States for the last 2 days it has got worse and feels like it is draining in the back of his throat making his throat feel scratchy so he came in to get checked Related Data Previous Rx's Medication Instructions Recorded albuterol sulfate 90 mcg/actuation 1 inh inhalation Q6H PRN shortness 07/12/22 aerosol inhaler (Proventil HFA) of breath or wheezing #8.5 grams buspirone 10 mg tablet 10 mg PO BID PRN Anxiety #60 tabs 08/25/22 escitalopram oxalate 20 mg tablet 20 mg PO DAILY Depression #90 tabs 08/25/22 (Lexapro) cefdinir 300 mg capsule 300 mg PO BID #20 caps 09/26/22 gentamicin 0.3 % eye drops 2 drp ophthalmic (eye) Q4H 7 days 09/26/22 #5 mL guaifenesin 600 mg tablet, 1,200 mg PO BID PRN cough #20 tabs 09/26/22 extended release 12 hr (Mucinex) methylprednisolone 4 mg tablets in See Rx Instructions .Route 09/26/22 a dose pack ([facility]
[2022-11-09 12:30] VITALS: BP 130/78; PULSE 82; RESP 18; TEMP 37.1
== END 2022-11-09 12:32 | disposition home or self-care (01) ==
PROVIDERS: Emergency Provider Nurse Practitioner; PCP Internal Medicine Adolescent Medicine
DX: J01.90 Acute sinusitis, unspecified (principal); R05.9 Cough, unspecified
CPT/HCPCS: 99212; 99214; G0463

== ENCOUNTER 2023-04-27 15:41 | Emergency (ER) | payer BC, SELFPAY ==
[2023-04-27 15:42] VITALS: BP 132/80; PULSE 69; RESP 18; TEMP 36.6; O2SAT 99; BMI 25.8
--- NOTE | 2023-04-27 16:26 | EXP.UTC ---
Discharge Plan Disposition Patient Disposition: Home, Self-Care Condition: Good Prescriptions Prescriptions: No Action escitalopram oxalate [Lexapro] 20 mg tablet 20 mg PO DAILY Qty: 90 0RF fluoxetine [Prozac] 10 mg capsule 10 mg PO DAILY Qty: 30 1RF Referrals Follow up/Referrals: Darrion Arita MD [Primary Care Provider] - See instructions Activity Restrictions/Add. Instructions Additional Instructions/Restrictions: Keep area clean and dry Allow dermabond to wear off Follow up with your Family Doctor if any swelling, redness or signs of infection Return if needed Straight to ER if any life threatening symptoms Clinical Impressions Clinical Impression: Laceration Instructions Patient Instructions: DI for Laceration Repair-Skin Glue Discharge ED Provider: Divina Beckwith [facility] General Stated complaint: [id number] hit in head Mode of Arrival: Ambulatory Source of Information: Patient Limitations: No Limitations Time Seen by Provider: 04/27/23 16:26 Description of Symptoms (Recalled from Triage Doc. by RN): Patient reports hitting right eye brow with a tool causing a laceration. HEENT Symptoms (Recalled from RN notes): No Resp Symptoms (Recalled from RN notes): No Skin Symptoms (Recalled from RN notes): Yes MS Symptoms (Recalled from RN notes): No Functional Status (Recalled from RN notes): wnl History of Present Illness Provider Complaint: Patient states that he was holding one of his tools over his head and it slipped and hit him in the right eyebrow area causing small laceration States that his family was worried where it was bleeding so much and made him come in States that it is stopped now and he just wanted to get it glued if he could Related Data Previous Rx's Medication Instructions Recorded escitalopram oxalate 20 mg tablet 20 mg PO DAILY Depression #90 tabs 02/14/23 (Lexapro) fluoxetine 10 mg capsule (Prozac) 10 mg PO DAILY #30 caps 02/14/23 Allergies Allergy/AdvReac Type Severity Reaction Status Date / Time erythromycin base Allergy Unknown Verified 03/20/23 15:05 [ERYTHROMYCIN BASE] Penicillins [PENICILLINS] Allergy Unknown Verified 03/20/23 15:05 Sulfa (Sulfonamide Allergy Unknown Verified 03/20/23 15:05 Antibiotics) [SULFA (SULFONAMIDE ANTIBIOTICS)] codeine [CODEINE] AdvReac Mild Verified 03/20/23 15:05 ALCOHOL IN COUGH MEDS Allergy Unknown NA-HALLUCIN Uncoded 03/20/23 15:05 ATIONS Worker's Comp Is this a Worker's Comp case?: No [facility] Disclaimer: The information contained in this section may have been updated after the patient was seen, as this information can be updated by other users. Medical History Generalized anxiety disorder Major depressive disorder Social History Smoking Status: Never smoker alcohol intake: never substance use type: denies use current occupational status: employed and other Travel in the last 8 weeks: None number of children: 1 ROS Obtained: Yes All systems reviewed & no additional complaints except as documented and Yes Systems reviewed as appropriate & no additional complaints except as documented Constitutional Constitutional: Reports system reviewed and no additional complaints, except as documented and Reports as per HPI Eyes Eyes: Reports system reviewed and no additional complaints, except as documented, Reports as per HPI, Denies blurry vision, Denies eye discharge, Denies irritation and Denies loss of vision ENT Ears, Nose, Mouth, and Throat: Reports system reviewed and no additional complaints, except as documented and Reports as per HPI Cardiovascular Cardiovascular: Reports system reviewed and no additional complaints, except as documented and Reports as per HPI Respiratory Respiratory: Reports system reviewed and no additional complaints, except as documented and Reports as pe
[2023-04-27 16:37] VITALS: BP 132/80; PULSE 69; RESP 18; TEMP 36.6; O2SAT 99
== END 2023-04-27 16:38 | disposition home or self-care (01) ==
PROVIDERS: Emergency Provider Nurse Practitioner; PCP Internal Medicine Adolescent Medicine
DX: S01.81XA Laceration without foreign body of other part of head, initial encounter (principal); F41.9 Anxiety disorder, unspecified; F33.9 Major depressive disorder, recurrent, unspecified; W20.8XXA Other cause of strike by thrown, projected or falling object, initial encounter
CPT/HCPCS: 12011; 99212; 99214; G0463

== ENCOUNTER 2023-08-17 19:08 | Outpatient (CLI) | payer OTHER, SELFPAY | END 2023-08-17 23:59 | LOC: LAB.DROPOF 19:09 | PROVIDERS: PCP Student in an Organized Health Care Education/Training Program; Visit Provider Student in an Organized Health Care Education/Training Program | DX: R05.8 Other specified cough (principal); R09.82 Postnasal drip; R09.89 Other specified symptoms and signs involving the circulatory and respiratory systems | CPT/HCPCS: 87635 ==

== ENCOUNTER 2023-09-12 18:40 | Outpatient (CLI) | payer OTHER, SELFPAY ==
[2023-09-12 18:16] LABS: Basophils % 0.7 % (0.1-2.0); Eosinophils # 0.1 K/mm3 (0.0-0.4); Hematocrit 56.9 % (42.0-52.0); Lymphocytes # 1.3 K/mm3 (0.7-4.5); Lymphocytes % 25.9 % (10-50); Mean Corpuscular HGB Conc 32.8 g/dL (31.8-35.4); Mean Corpuscular Hemoglobin 33.3 pg (27.0-31.2); Mean Corpuscular Volume 101.5 fl (80-94); Mean Platelet Volume 8.1 fl (7.4-10.4); Monocytes # 0.3 K/mm3 (0.1-1.0); Neutrophils # 3.3 K/mm3 (1.8-7.8); Neutrophils % 66.3 % (37.0-80.0); Platelet Count 217 K/mm3 (142-424); Red Cell Distribution Width 12.6 % (11.5-17.5)
[2023-09-12 18:22] LABS: Alanine Aminotransferase 26 U/L (12-78); Albumin Level 4.6 g/dl (3.5-5.0); Alkaline Phosphatase 81 U/L (38-126); Anion Gap 10.8 mEq/L (5-15); Aspartate Amino Transferase 31 U/L (17-59); Bilirubin,Total 0.8 mg/dl (0.2-1.3); Blood Urea Nitrogen 10 mg/dl (9-20); Calcium 9.5 mg/dl (8.4-10.2); Carbon Dioxide 29 mmol/L (22.0-30.0); Chloride 105 mmol/L (98-107); Chol/HDL Ratio 3.8 (1-3.5); Cholesterol 199 mg/dl (140-200); Estimated Glomerular Filt Rate 82 ml/min (>60); GFR (African American) 99 ML/MIN (>60); Globulin 2.3 g/dL (1.3-3.2); Glucose 90 mg/dl (74-100); HDL Cholesterol 53 mg/dl (40-60); Potassium 4.8 mmoL/L (3.5-5.1); Sodium 140 mmol/L (136-145); Total Protein,Serum 6.9 g/dl (6.3-8.2); Triglycerides 78 mg/dl (30-150); VLDL Cholesterol 16 mg/dL (0-40)
[2023-09-12 18:35] LABS: Direct LDL Cholesterol 105.56 mg/dL (100-129)
[2023-09-12 18:39] LABS: Free T4 (Free Thyroxine) 0.89 ng/dl (0.78-2.19)
[2023-09-12 18:40] LABS: 25-OH Vitamin D, Total 25.3 ng/mL (30-100)
[2023-09-12 18:49] LABS: Hemoglobin 18.6 g/dL (14.1-18.0)
[2023-09-12 18:53] LABS: Thyroid Stimulating Hormone 2.77 uIU/mL (0.465-4.68)
[2023-09-12 19:15] LABS: Vitamin B12 357 pg/mL (239-931)
[2023-09-12 20:10] LABS: Hemoglobin A1C 5.1 % (4.0-6.0)
[2023-09-14 06:37] LABS: HIV Screen 4th Generation wRfx Non Reactive (Non Reactive)
[2023-09-14 11:18] LABS: HCV Ab Non Reactive (Non Reactive)
== END 2023-09-12 23:59 ==
LOC: LAB.DROPOF 18:40
PROVIDERS: PCP Internal Medicine; Visit Provider Internal Medicine
DX: F41.9 Anxiety disorder, unspecified (principal); E53.8 Deficiency of other specified B group vitamins; E55.9 Vitamin D deficiency, unspecified; Z13.21 Encounter for screening for nutritional disorder; R71.8 Other abnormality of red blood cells; Z11.59 Encounter for screening for other viral diseases; Z11.4 Encounter for screening for human immunodeficiency virus [HIV]; Z79.899 Other long term (current) drug therapy
CPT/HCPCS: 80053; 80061; 82306; 82607; 83036; 84439; 84443; 85025; 86703; G0432

== ENCOUNTER 2023-10-03 14:28 | Outpatient (CLI) | payer OTHER, SELFPAY ==
[2023-10-03 14:27] LABS: Adenovirus,PCR Not Detected (NotDetected); Coronavirus 19, PCR Not Detected (NotDetected); Coronavirus 229E Not Detected (NotDetected); Coronavirus NL63 Not Detected (NotDetected); Coronavirus OC43 Not Detected (NotDetected); Coronovirus HKU1,PCR Not Detected (NotDetected); Human Metapneumovirus Not Detected (NotDetected); Influenza A, PCR Not Detected (NotDetected); Influenza AH1, 2009 Not Detected (NotDetected); Influenza AH1, PCR Not Detected (NotDetected); Influenza AH3,PCR Not Detected (NotDetected); Influenza B, PCR Not Detected (NotDetected); Parainfluenza 1, PCR Not Detected (NotDetected); Parainfluenza 2, PCR Not Detected (NotDetected); Parainfluenza 3, PCR Not Detected (NotDetected); Parainfluenza 4, PCR Not Detected (NotDetected); Respiratory Syncytial Virus Not Detected (NotDetected)
[2023-10-03 16:22] LABS: Rhinovirus/Enterovirus Detected (NotDetected)
== END 2023-10-03 23:59 ==
LOC: LAB.DROPOF 14:29
PROVIDERS: PCP Nurse Practitioner Family; Visit Provider Nurse Practitioner Family
DX: J98.8 Other specified respiratory disorders (principal); B34.1 Enterovirus infection, unspecified
CPT/HCPCS: 87632; 87635

== ENCOUNTER 2024-01-24 11:28 | Emergency (ER) | payer OTHER, SELFPAY ==
[2024-01-24 11:39] VITALS: BP 143/105; PULSE 76; RESP 20; TEMP 36.8; O2SAT 98; BMI 28.7
--- NOTE | 2024-01-24 11:46 | CT_ITS ---
FINAL REPORT TECHNIQUE: Thin section axial images were obtained from skull base to vertex without contrast. Coronal reconstruction images were obtained from the axial data. Exam was performed using dose reduction technique. CLINICAL HISTORY: head injury FINDINGS: There is no mass effect or midline shift. There is no hydrocephalus. There is no intracranial hemorrhage. The posterior fossa is without acute abnormality. The basilar cisterns are preserved. The soft tissues are without acute abnormality. No acute osseous abnormality is identified. IMPRESSION: No acute intracranial abnormality. Reviewed, Interpreted and Dictated by Shyanne Bailey MD Transcribed by Annika Bravo Authenticated and [facility]
--- NOTE | 2024-01-24 11:48 | ED_ITS ---
Discharge Plan Disposition Patient Disposition: Home, Self-Care Condition: Good Prescriptions Prescriptions: New ketorolac 10 mg tablet 10 mg PO Q8H PRN (Reason: pain) 5 Days Qty: 14 0RF No Action buspirone 10 mg tablet 10 mg PO TID Qty: 90 3RF escitalopram oxalate [Lexapro] 20 mg tablet 20 mg PO DAILY Qty: 90 0RF pantoprazole 20 mg tablet,delayed release (DR/EC) 20 mg PO DAILY Qty: 30 2RF Referrals Follow up/Referrals: Stacy Rocha APRN [Primary Care Provider] - See instructions Activity Restrictions/Add. Instructions Additional Instructions/Restrictions: As we discussed, it is likely that you sustained a concussion, your symptoms will likely take up to multiple weeks to completely resolve. Please monitor for any new or worsening symptoms as well as any triggers for worsening symptoms. Additionally, please continue to stay hydrated. Please take the Toradol as needed. Clinical Impressions Clinical Impression: Concussion Instructions Patient Instructions: DI for Concussion Discharge ED Provider: Rj Baird Adult [facility] General Chief complaint: Head Injury Stated complaint: fell 01/12 head injury Time Seen by Provider: 01/24/24 11:45 Mode of Arrival: Ambulatory Source of Information: Patient Limitations: No Limitations Description of Symptoms (Recalled from ER Triage Doc. by RN): pt to ed c/o head injury. pt states he was playing slip n slide baseball x2 weeks ago when he fell and hit the back of his head, pt denies initial LOC with the fall. pt states since then he has been experiencing headaches, brain fog, stuttering and lethagry. pt denies episodes of incontinence. History of Present Illness HPI narrative: The patient presents with a chief complaint of persistent headaches, shakiness, and slurred speech following a head injury that occurred before the January. He reports that he did not lose consciousness after the initial injury but experienced headaches. He then experienced a second episode this past Monday, during which he passed out. Since then, he has been experiencing ongoing headaches, shakiness, and difficulty with speech. He describes an episode of dizziness that has been occurring over the past couple of days, during which he has to stop what he is doing or feel like he is going to fall. He also reports episodes of forgetfulness and a feeling of lightness. The initial head injury occurred when he struck the back of his head, and he describes his eyes feeling like slot machines afterward. He experienced a headache that night and the following day, during which he remained in bed. He reports a sensation of pressure in his head and tightness in his neck but does not mention any neck pain. He also describes occasional numbness in his arms, which he considers a normal occurrence. He denies any pain radiating down his arms or back. He reports some vision issues, such as squinting and occasional fogginess. Please note that above description of symptoms, in this electronic medical record under categorization of recalled from ER triage doctor by RN are reflective of an initial nursing assessment, however, is not reflective of my full history and physical exam that was personally taken and clarified. Consequentially, this preceding description of symptoms, which may include the patient's categorized chief complaint in the EMR, do not reflect my personal clinical impression, and the ultimate description of history of present illness and patient stated complaints should be deferred to this section of the note. Unless stated otherwise or congruent with this section of the note, additional signs, symptoms, or incongruence should be interpreted as inaccurate with my clinical impression. Related Data Previous Rx's Medication Instructions Recorded buspirone 10 mg tablet 10 mg PO TID #90 tabs 09/12/23 escitalopram oxalate 20 mg tablet 20 mg PO DAILY Depression #90 tabs 09/12/23 (Lexapro) pantoprazole 20 mg tablet,delayed 20 mg PO DAILY #30 tabs 09/12/23 release ketorolac 10 mg tablet 10 mg PO Q8H PRN pain 5 days #14 01/24/24 tabs Allergies Allergy/AdvReac Type Severity Reaction Status Date / Time erythromycin base Allergy Unknown Verified 01/24/24 10:55 [ERYTHROMYCIN BASE] Penicillins [PENICILLINS] Allergy Unknown Verified 01/24/24 10:55 Sulfa (Sulfonamide Allergy Unknown Verified 01/24/24 10:55 Antibiotics) [SULFA (SULFONAMIDE ANTIBIOTICS)] codeine [CODEINE] AdvReac Mild Verified 01/24/24 10:55 ALCOHOL IN COUGH MEDS Allergy Unknown NA-HALLUCIN Uncoded 10/03/23 10:08 [facility] Disclaimer: The information contained in this section may have been updated after the patient was seen, as this information can be updated by other users. Medical History Acute effusion of both middle ears Sinusitis Cough Laceration Conjunctivitis Major depressive disorder Generalized anxiety disorder Exposure to COVID-19 virus Viral syndrome Laceration Bronchitis Renal colic on right side Surgical History No significant past surgical history Family History Other No significant family history Social History Smoking Status: Never smoker alcohol intake: never substance use type: denies use current occupational status: employed and other Travel in the last 8 weeks: None number of children: 1 ROS Obtained: Yes other As per HPI Physical Exam General General appearance: alert and in no apparent distress Head Head exam: atraumatic and normocephalic Eye Eye exam: Present normal appearance Neck Neck exam: Present normal inspection Chest Chest inspection: Present normal inspection and symmetric chest wall rise Respiratory Respiratory exam: Present normal lung sounds bilaterally; Absent respiratory distress Cardiovascular Cardiovascular exam: Present regular rate and normal rhythm Abdominal Exam Abdominal exam: Present soft Neurological Exam Neurological exam: Present alert, oriented X3 and normal gait; Absent motor sensory deficit Psychiatric Psychiatric exam: Present normal affect and normal mood Skin Skin exam: Present warm and dry Medical Decision Making Medical Records Medical records reviewed: Yes I reviewed the patient's medical records. Vish Inquiry Pt receiving controlled substance: No Vital Signs: 01/24/24 11:39 01/24/24 13:56 Temperature 98.2 F 98.0 F Temperature Source Oral Pulse Rate 51 L Pulse Rate [Left Radial] 76 Respiratory Rate 20 16 Blood Pressure 124/83 Blood Pressure [Right Arm] 143/105 H Blood Pressure Mean [Right Arm] 117 02 Sat by Pulse Oximetry 98 Oxygen Delivery Method Room Air Orders (Tests/Meds): ED MEDICATIONS Discontinued Medications Generic Name Dose Route Start Last Admin Trade Name Freq PRN Reason Stop Dose Admin Ketorolac Tromethamine 15 mg 01/24/24 12:48 01/24/24 12:53 Ketorolac 30mg/Ml Vial IM 01/24/24 12:49 Not Given ONCE ONE Ketorolac Tromethamine 15 mg 01/24/24 12:53 01/24/24 12:53 Ketorolac 30mg/Ml Vial IV 01/24/24 12:54 15 mg ONCE ONE Administration ORDERS Category Date Time Status CT head/brain wo con Stat Cat Scan 01/24/24 11:46 Completed Medical Decision Narrative: Patient with history and exam per above presenting for evaluation of headache, syncopal episode, relatively recent closed head injury. Diagnoses considered include concussion, TBI, fracture, intracranial hemorrhage, no clinical evidence at this time to warrant workup beyond history and physical exam for cervical spinal injury or dissection ED workup and treatment included: ED MEDICATIONS Discontinued Medications Generic Name Dose Route Start Last Admin Trade Name Freq PRN Reason Stop Dose Admin Ketorolac Tromethamine 15 mg 01/24/24 12:48 01/24/24 12:53 Ketorolac 30mg/Ml Vial IM 01/24/24 12:49 Not Given ONCE ONE Ketorolac Tromethamine 15 mg 01/24/24 12:53 01/24/24 12:53 Ketorolac 30mg/Ml Vial IV 01/24/24 12:54 15 mg ONCE ONE Administration ORDERS Category Date Time Status CT head/brain wo con Stat Cat Scan 01/24/24 11:46 Completed Imaging was independently visualized and interpreted by me, significant for no acute findings Please refer to radiology report for full details. My clinical impression at this time is most consistent with concussion. I discussed my clinical impression with patient and answered all questions. At this time, the evidence for any other entities in the differential is insufficient to warrant any further testing or ED observation. This was explained to the patient. The patient was advised that persistent or worsening symptoms require further evaluation. I confirmed the patient's understanding of this discussion. Critical Care Critical Care Time Critical Care Time: No
[2024-01-24] MEDS: KETOROLAC 30MG/ML VIAL 15 MG IV (12:53)
[2024-01-24 13:56] VITALS: BP 124/83; PULSE 51; RESP 16; TEMP 36.7
== END 2024-01-24 13:58 | disposition home or self-care (01) ==
PROVIDERS: Emergency Provider Emergency Medicine; PCP Nurse Practitioner Family
DX: S06.0X0A Concussion without loss of consciousness, initial encounter (principal); R51.9 Headache, unspecified; R53.83 Other fatigue; W19.XXXA Unspecified fall, initial encounter
CPT/HCPCS: 70450; 96374; 96375; 99284; J1885

== ENCOUNTER 2024-03-19 13:33 | Outpatient (CLI) | payer OTHER, SELFPAY | END 2024-03-19 23:59 | disposition home or self-care (01) | LOC: LAB.DROPOF 03-20 10:59 | PROVIDERS: PCP Student in an Organized Health Care Education/Training Program; Visit Provider Student in an Organized Health Care Education/Training Program | DX: R09.89 Other specified symptoms and signs involving the circulatory and respiratory systems (principal) | CPT/HCPCS: 87635 ==

== ENCOUNTER 2024-03-28 13:22 | Emergency (ER) | payer OTHER, SELFPAY ==
[2024-03-28 13:23] VITALS: BP 123/78; PULSE 95; RESP 16; TEMP 36.6; O2SAT 97; BMI 27.3
--- NOTE | 2024-03-28 13:30 | HMH.EDGENADL ---
Discharge Plan Disposition Chief Complaint: PAIN Prescriptions Prescriptions: No Action buspirone 10 mg tablet 10 mg PO TID Qty: 90 3RF Vraylar 1.5 mg capsule 1.5 mg PO DAILY Qty: 90 3RF Referrals Follow up/Referrals: Esdras Cobos DO [Primary Care Provider] - See instructions Print Language Print Language: Uzbek Discharge ED Provider: Rj Baird General Adult HPI General Chief complaint: PAIN Stated complaint: AO 03/28/24 13:00, inj left ankle Time Seen by Provider: 03/28/24 13:29 History of Present Illness HPI narrative: The patient presents with a chief complaint of a painful ankle injury that occurred approximately 45 minutes prior to the visit. He reports jumping down into a ditch and feeling a pop in the ankle. He attempted to walk it off but was unable to do so due to the pain. He describes the pain as being located at the back of the ankle and radiating up to the knee. He also reports experiencing a mild tingling sensation in the affected area. He denies any numbness, head injury, or other injuries related to the incident. He has been having difficulty bearing weight on the injured ankle. He mentions he has experienced similar injuries before. An x-ray has been taken of the affected area. Please note that above description of symptoms, in this electronic medical record under categorization of recalled from ER triage doctor by RN are reflective of an initial nursing assessment, however, is not reflective of my full history and physical exam that was personally taken and clarified. Consequentially, this preceding description of symptoms, which may include the patient's categorized chief complaint in the EMR, do not reflect my personal clinical impression, and the ultimate description of history of present illness and patient stated complaints should be deferred to this section of the note. Unless stated otherwise or congruent with this section of the note, additional signs, symptoms, or incongruence should be interpreted as inaccurate with my clinical impression. Related Data Previous Rx's ?Medication ?Instructions ?Recorded buspirone 10 mg tablet 10 mg PO TID #90 tabs 09/12/23 cariprazine 1.5 mg capsule 1.5 mg PO DAILY #90 caps 03/05/24 (Vraylar) Allergies Allergy/AdvReac Type Severity Reaction Status Date / Time erythromycin base Allergy Unknown Verified 03/21/24 15:30 [ERYTHROMYCIN BASE] Penicillins [PENICILLINS] Allergy Unknown Verified 03/21/24 15:30 Sulfa (Sulfonamide Allergy Unknown Verified 03/21/24 15:30 Antibiotics) [SULFA (SULFONAMIDE ANTIBIOTICS)] codeine [CODEINE] AdvReac Mild Verified 03/21/24 15:30 ALCOHOL IN COUGH MEDS Allergy Unknown NA-HALLUCIN Uncoded 03/21/24 15:30 [facility] Disclaimer: The information contained in this section may have been updated after the patient was seen, as this information can be updated by other users. Medical History (Updated 03/21/24 @ 15:51 by Kena Scruggs APRN) Chronic sinusitis Concussion Fall Viral respiratory illness Establishing care with new doctor, encounter for Acute effusion of both middle ears Sinusitis Cough Laceration Conjunctivitis Major depressive disorder Generalized anxiety disorder Exposure to COVID-19 virus Viral syndrome Laceration Bronchitis Renal colic on right side Surgical History No significant past surgical history Family History Other No significant family history Social History Smoking Status: Never smoker alcohol intake: never substance use type: denies use current occupational status: employed and other Travel in the last 8 weeks: None number of children: 1 ROS Obtained: Yes other As per HPI Physical Exam General General appearance: alert and in no apparent distress Head Head exam: atraumatic and normocephalic Eye Eye exam: Present normal appearance Neck Neck exam: Present normal inspection Chest Chest inspection: Present normal inspection and symmetric chest wall rise Respiratory Respiratory exam: Present normal lung sounds bilaterally; Absent respiratory distress Cardiovascular Cardiovascular exam: Present regular rate and normal rhythm Abdominal Exam Abdominal exam: Present soft Neurological Exam Neurological exam: Present alert and oriented X3 Psychiatric Psychiatric exam: Present normal affect and normal mood Skin Skin exam: Present warm and dry Other Other exam information: Left ankle lateral maleolar tenderness to palpation, distally neurovascularly intact. No knee tenderness to palpation. No open injury Medical Decision Making Medical Records Medical records reviewed: Yes I reviewed the patient's medical records. Screening: Per USPSTF and CDC recommendations, given the prevalence of disease in our region, it is our hospital?s policy to screen for HIV and viral Hepatitis for all patients aged 18 and over and those with ongoing risk factors. Vish Inquiry Pt receiving controlled substance: No Vital Signs: 03/28/24 13:23 Temperature 97.9 F Temperature Source Oral Pulse Rate [Left Radial] 95 H Respiratory Rate 16 Blood Pressure [Right Arm] 123/78 Blood Pressure Mean [Right Arm] 93 02 Sat by Pulse Oximetry 97 Oxygen Delivery Method Room Air Orders (Tests/Meds): ED MEDICATIONS Discontinued Medications Generic Name Dose Route Start Last Admin Trade Name Freq PRN Reason Stop Dose Admin Acetaminophen 1,000 mg 03/28/24 15:18 03/28/24 15:25 Acetaminophen 500mg Tab PO 03/28/24 15:19 1,000 mg ONCE ONE Administration Ibuprofen 600 mg 03/28/24 15:18 03/28/24 15:25 Ibuprofen 600 Mg Tablet PO 03/28/24 15:19 600 mg ONCE ONE Administration ORDERS Category Date Time Status Ankle XR - Left minimum 3 Views [XR ankle LT min 3V] Exams 03/28/24 13:33 Taken Stat Medical Decision Narrative: Patient with history and exam per above presenting for evaluation of ankle pain Diagnoses considered include fracture, sprain, strain, no clinical evidence of vascular injury, nerve injury ED workup and treatment included: ED MEDICATIONS Discontinued Medications Generic Name Dose Route Start Last Admin Trade Name Freq PRN Reason Stop Dose Admin Acetaminophen 1,000 mg 03/28/24 15:18 03/28/24 15:25 Acetaminophen 500mg Tab PO 03/28/24 15:19 1,000 mg ONCE ONE Administration Ibuprofen 600 mg 03/28/24 15:18 03/28/24 15:25 Ibuprofen 600 Mg Tablet PO 03/28/24 15:19 600 mg ONCE ONE Administration ORDERS Category Date Time Status Ankle XR - Left minimum 3 Views [XR ankle LT min 3V] Exams 03/28/24 13:33 Taken Stat Imaging is pending at this time. Please refer to radiology report for full details. Care was transferred to incoming physician Critical Care Critical Care Time Critical Care Time: No
--- NOTE | 2024-03-28 13:33 | XR_ITS ---
FINAL REPORT CLINICAL HISTORY: fall, pain in ankle FINDINGS: LEFT ANKLE Three views demonstrate no acute fracture or dislocation. The visualized joint spaces are normally aligned. The mortise is intact. There is a large os trigonum measuring 1.0 cm. There is soft tissue swelling overlying the lateral malleolus. IMPRESSION: No acute bony abnormality. Reviewed, Interpreted and Dictated by Marques Ramirez MD Transcribed by Ginny Cates Authenticated and [facility]
[2024-03-28] MEDS: ACETAMINOPHEN 500MG TAB 1000 MG PO (15:25)
[2024-03-28] MEDS: IBUPROFEN 600 MG TABLET PO (15:25)
--- NOTE | 2024-03-28 15:25 | PC.NURSE ---
ICE PACK PROVIDED, PT UPDATED ON POC. NO FURTHER NEEDS AT THIS TIME
[2024-03-28 16:20] VITALS: BP 117/59; PULSE 63; RESP 18; TEMP 36.7; O2SAT 97
== END 2024-03-28 16:22 | disposition home or self-care (01) ==
PROVIDERS: Emergency Provider Emergency Medicine; PCP Internal Medicine
DX: S93.402A Sprain of unspecified ligament of left ankle, initial encounter (principal); M25.572 Pain in left ankle and joints of left foot; W17.89XA Other fall from one level to another, initial encounter
CPT/HCPCS: 73610; 99283

== ENCOUNTER 2024-04-09 15:11 | Outpatient (CLI) | payer OTHER, SELFPAY ==
--- NOTE | 2024-04-09 15:12 | CT_ITS ---
FINAL REPORT CLINICAL HISTORY: chronic sinusits COMPARISON: None FINDINGS: CT SINUSES WITHOUT CONTRAST: There is minimal mucoperiosteal thickening in the ethmoid air cells. The remainder of the paranasal sinuses are well aerated. The ostiomeatal units are patent. No air-fluid levels are noted. There is no fracture. IMPRESSION: Minimal mucoperiosteal thickening in the ethmoid air cells, otherwise unremarkable CT of the paranasal sinuses. Reviewed, Interpreted and Dictated by Marques Ramirez MD Transcribed by Lise Franklin Authenticated and [facility]
== END 2024-04-09 23:59 | disposition home or self-care (01) ==
LOC: RAD 15:12
PROVIDERS: PCP Internal Medicine; Visit Provider Nurse Practitioner
DX: J32.9 Chronic sinusitis, unspecified (principal)
CPT/HCPCS: 70486

== ENCOUNTER 2024-11-12 09:45 | Outpatient (CLI) | payer OTHER, SELFPAY ==
[2024-11-12 09:51] LABS: Microscopic, Urine URINE MICROSCOPIC (MICROSCOPIC)
[2024-11-12 11:10] LABS: Albumin Level 4.6 g/dl (3.5-5.0); Chloride 104 mmol/L (98-107)
[2024-11-12 11:11] LABS: Potassium 4.7 mmoL/L (3.5-5.1); Sodium 137 mmol/L (136-145)
[2024-11-12 11:13] LABS: Alanine Aminotransferase 31 U/L (12-78); Albumin/Globulin Ratio 2.2 (1.1-1.8); Alkaline Phosphatase 78 U/L (38-126); Anion Gap 8.7 mEq/L (5-15); Aspartate Amino Transferase 27 U/L (17-59); Bilirubin,Total 0.6 mg/dl (0.2-1.3); Blood Urea Nitrogen 17 mg/dl (9-20); Carbon Dioxide 29 mmol/L (22.0-30.0); Estimated Glomerular Filt Rate 60 ml/min (>60); GFR (African American) 73 ML/MIN (>60); Globulin 2.1 g/dL (1.3-3.2); Iron 161 ug/dL (49-181); Total Protein,Serum 6.7 g/dl (6.3-8.2)
[2024-11-12 11:14] LABS: Calcium 9.3 mg/dl (8.4-10.2); Cholesterol 210 mg/dl (140-200); Glucose 88 mg/dl (74-100); HDL Cholesterol 71 mg/dl (40-60); Triglycerides 138 mg/dl (30-150); VLDL Cholesterol 28 mg/dL (0-40)
[2024-11-12 11:25] LABS: Direct LDL Cholesterol 103.18 mg/dL (100-129)
[2024-11-12 11:26] LABS: Appearance,Urine CLEAR (Clear); Bilirubin,Urine Negative (Negative); Blood, Urine 1+ (Negative); Color,Urine YELLOW (Yellow); Glucose,Urine (UA) Negative (Negative); Ketones,Urine Negative (Negative); Leukocyte Esterase,Urine Negative (Negative); Nitrate,Urine Negative (Negative); Protein,Urine Negative (Negative); Urobilinogen,Urine 0.2 EU/dl (0.2)
[2024-11-12 11:28] LABS: Total Iron Binding Capacity 269 ug/dL (261-462)
[2024-11-12 11:45] LABS: Thyroid Stimulating Hormone 4.53 uIU/mL (0.465-4.68)
[2024-11-12 11:49] LABS: Ferritin 191 ng/ml (17.9-464)
[2024-11-12 12:15] LABS: Basophils # 0.1 K/mm3 (0-0.2); Basophils % 1.3 % (0.1-2.0); Eosinophils % 0.4 % (0.1-12.0); Hematocrit 49.8 % (42.0-52.0); Hemoglobin 17.3 g/dL (14.1-18.0); Lymphocytes # 1.8 K/mm3 (0.7-4.5); Lymphocytes % 23.9 % (10-50); Mean Corpuscular HGB Conc 34.7 g/dL (31.8-35.4); Mean Corpuscular Hemoglobin 32.5 pg (27.0-31.2); Mean Corpuscular Volume 93.4 fl (80-94); Mean Platelet Volume 9.5 fl (7.4-10.4); Monocytes # 0.6 K/mm3 (0.1-1.0); Monocytes % 7.6 % (1.7-9.3); Neutrophils # 4.8 K/mm3 (1.8-7.8); Neutrophils % 63.3 % (37.0-80.0); Nucleated Red Blood Cells # 0 10^3/uL; Nucleated Red Blood Cells % 0 %; Platelet Count 270 K/mm3 (142-424); Red Blood Count 5.33 M/mm3 (4.60-6.20); Red Cell Distribution Width 12.2 % (11.5-17.5); Red Cell Distribution Width-SD 41.5 fL; White Blood Count 7.6 K/mm3 (4.8-10.8)
[2024-11-12 12:26] LABS: Bacteria,Urine Trace /lpf; RBC,Urine Occasional #/hpf (0-3); Squamous Epithelial Cell,Urine Occasional #/hpf (0-5); WBC,Urine Occasional #/hpf (0-3)
[2024-11-12 13:11] LABS: Vitamin B12 422 pg/mL (239-931)
[2024-11-13 15:11] LABS: H. pylori Breath Test Negative (Negative)
== END 2024-11-12 23:59 | disposition home or self-care (01) ==
LOC: LAB 09:46
PROVIDERS: PCP Internal Medicine; Visit Provider Nurse Practitioner Family
DX: K21.9 Gastro-esophageal reflux disease without esophagitis (principal); E55.9 Vitamin D deficiency, unspecified; E53.8 Deficiency of other specified B group vitamins; F32.9 Major depressive disorder, single episode, unspecified; F41.1 Generalized anxiety disorder; I10 Essential (primary) hypertension; R05.1 Acute cough; R09.89 Other specified symptoms and signs involving the circulatory and respiratory systems; R14.2 Eructation; Z13.220 Encounter for screening for lipoid disorders; Z13.1 Encounter for screening for diabetes mellitus; E11.9 Type 2 diabetes mellitus without complications; R41.3 Other amnesia; G47.33 Obstructive sleep apnea (adult) (pediatric); R53.83 Other fatigue
CPT/HCPCS: 36415; 80053; 80061; 81001; 82306; 82607; 82728; 83013; 83036; 83540; 83550; 84156; 84439; 84443; 85025; 87086

== ENCOUNTER 2024-11-26 10:54 | Outpatient (CLI) | payer OTHER, SELFPAY ==
--- NOTE | 2024-11-26 11:00 | XR_ITS ---
FINAL REPORT CLINICAL HISTORY: right elbow pain x4 months nki COMPARISON: None FINDINGS: RIGHT ELBOW 2 views of the right elbow were obtained. There is no acute fracture or dislocation. The joint spaces are intact. The soft tissues are unremarkable. IMPRESSION: No acute bony abnormality identified. Reviewed, Interpreted and Dictated by Brandy Mauricio MD Transcribed by Lise Franklin Authenticated and [facility]
--- NOTE | 2024-11-26 11:00 | XR_ITS ---
FINAL REPORT CLINICAL HISTORY: left hand pain c/o thumb pain COMPARISON: None FINDINGS: LEFT HAND Three views demonstrate no acute fracture or dislocation. The visualized joint spaces are normally aligned. The soft tissues are unremarkable. IMPRESSION: No acute process. Reviewed, Interpreted and Dictated by Brandy Mauricio MD Transcribed by Lise Franklin Authenticated and [facility]
== END 2024-11-26 23:59 | disposition home or self-care (01) ==
LOC: RAD 10:56
PROVIDERS: PCP Internal Medicine; Visit Provider Orthopaedic Surgery
DX: M25.521 Pain in right elbow (principal); M79.645 Pain in left finger(s); M79.642 Pain in left hand
CPT/HCPCS: 73070; 73130

== ENCOUNTER 2024-12-23 17:00 | Outpatient (CLI) | payer OTHER, SELFPAY ==
[2024-12-23 16:58] LABS: Coronavirus 19, PCR Not Detected (NotDetected); Human Rhinovirus Not Detected (NotDetected); Influenza A, PCR Not Detected (NotDetected); Influenza B, PCR Not Detected (NotDetected); Respiratory Syncytial Virus Not Detected (NotDetected)
== END 2024-12-23 23:59 | disposition home or self-care (01) ==
LOC: LAB.DROPOF 17:00
PROVIDERS: PCP Nurse Practitioner Family; Visit Provider Nurse Practitioner Family
DX: R05.1 Acute cough (principal)
CPT/HCPCS: 87631

== ENCOUNTER 2025-03-26 15:00 | Outpatient (CLI) | payer OTHER, SELFPAY ==
[2025-03-26 17:07] LABS: Coronavirus 19, PCR Not Detected (NotDetected); Influenza A, PCR Not Detected (NotDetected); Influenza B, PCR Not Detected (NotDetected)
== END 2025-03-26 23:59 ==
LOC: LAB.DROPOF 03-27 10:50
PROVIDERS: PCP Internal Medicine; Visit Provider Internal Medicine
DX: J98.8 Other specified respiratory disorders (principal); B97.89 Other viral agents as the cause of diseases classified elsewhere; R53.83 Other fatigue
CPT/HCPCS: 87631

== ENCOUNTER 2025-04-02 10:52 | Day surgery (SDC) | payer OTHER, SELFPAY ==
[2025-03-25 13:01] VITALS: BMI 27.8
--- NOTE | 2025-03-30 12:35 | P.HP_ITS ---
History of Present Illness *Admission Date: 04/02/25 *History of present illness: Mr. James is a 44-year-old gentleman who is here for diagnostic EGD secondary to significant heartburn, bloating and belching. He has had a heartburn and reflux for about 15 years. Over the last several years he has tried omeprazole, Protonix and Pepto-Bismol. He has been on sucralfate daily and famotidine twice daily. He quit drinking carbonated beverages 4 years ago. He is still having breakthrough symptoms 2 or 3 times weekly. He does occasionally get choked on his own saliva but does not have any true dysphagia. The examination is deemed medically necessary for diagnostic EGD. The patient has been seen, interviewed and examined prior to the procedure by both myself and the anesthesia provider. [facility] Disclaimer: The information contained in this section may have been updated after the patient was seen, as this information can be updated by other users. Medical History Fistula Acute maxillary sinusitis Deviated nasal septum Chronic sinusitis Fall Concussion Establishing care with new doctor, encounter for Viral respiratory illness Screening for HIV (human immunodeficiency virus) Encounter for HCV screening test for low risk patient Cough Acute effusion of both middle ears Laceration Conjunctivitis Major depressive disorder Generalized anxiety disorder Exposure to COVID-19 virus Viral syndrome Laceration Bronchitis Sinusitis Renal colic on right side Surgical History Hx of colonoscopy History of cholecystectomy History of tonsillectomy and adenoidectomy Family History Other Alpha 1-antitrypsin PiMS phenotype Bladder cancer Thyroid cancer Social History Smoking Status: Never smoker alcohol intake: current alcohol intake frequency: a few times a week substance use type: denies use current occupational status: employed Travel in the last 8 weeks?: None number of children: 1 caffeine: No Have you lived/traveled outside [place] in past 30 days?: No Contact w/someone who lives/traveled outside [place] past 30 days?: No Exposure to someone with infectious disease in past 14 days?: No Do you have a fever (greater than 100.4 F or 38 C)?: No Have you tested positive for COVID-19?: No Exposed to someone with COVID-19 in past 14 days?: No Do you have a sore throat?: No Do you have a cough?: No Do you have any weakness?: No Are you experiencing any nausea/vomitting?: No Do you have any diarrhea?: No Are you experiencing any unusual bleeding?: No Do you have any muscle aches/pain?: No Do you have any abdominal pain?: No Are you experiencing loss of taste or smell?: No Other Medical History Have you received the Flu Vaccine for this season: No Have you received the Pneumonia Vaccine: No Review of Systems Review of Systems Review of systems (narrative): Negative *Cardiovascular Comments: Negative *Gastrointestinal Comments: Negative *Genitourinary Comments: Negative *Musculoskeletal Comments: Negative *Neurologic Comments: Negative Meds Home Medications and Allergies Home Medications ?Medication ?Instructions ?Recorded ?Confirmed ?Type phentermine 37.5 mg tablet 37.5 mg PO DAILY #30 tabs 0 02/11/25 04/02/25 Rx (Adipex-P) bupropion HCl 200 mg tablet,12 hr 200 mg PO BID #180 e a 03/26/25 04/02/25 Rx sustained-release (Wellbutrin SR) buspirone 15 mg tablet 15 mg PO TID #270 tabs 03/2604/02/25 Rx famotidine 20 mg tablet See Rx Instructions .Route 0 03/26/25 04/02/25 Rx .COMPLEX #180 tabs levocetirizine 5 mg tablet 5 mg PO DAILY #30 tabs 03/1004/02/25 Rx prednisone 20 mg tablet 20 mg PO BID #14 tabs 04/02/25 Rx promethazine-DM 6.25 mg-15 mg/5 mL 5 ml PO Q4-6H PRN c ough #118 mL 03/26/25 04/02/25 Rx oral syrup pseudoephedrine HCl 30 mg tablet 60 mg (2 x 30 mg) PO Q6H PRN nasal 03/26/25 Rx congestion #30 tabs New Prescriptions to Start Prescriptions: Allergies Allergy/AdvReac Type Severity Reaction Status Date / Time erythromycin base Allergy Unknown Rash Verified 04/02/25 12:16 (ERYTHROMYCIN BASE) Penicillins (PENICILLINS) Allergy Unknown Rash Verified 04/02/25 12:16 Sulfa (Sulfonamide Allergy Unknown Rash Verified 04/02/25 12:16 Antibiotics) (SULFA (SULFONAMIDE ANTIBIOTICS)) codeine (CODEINE) AdvReac Mild Rash Verified 04/02/25 12:16 ALCOHOL IN COUGH MEDS Allergy Unknown NA-HALLUCIN Uncoded 03/26/25 15:02 ATIONS Exam *Routine HEENT Exam Head: Present normocephalic Eye: Present EOMI and PERRL ENT: Present mucous membranes moist *Routine Neck Exam Neck: Present supple *Routine Respiratory Exam Respiratory: Present CTA bilaterally *Routine Cardiovascular Exam Cardiovascular: Present RRR *Routine Abdominal Exam Abdominal: Present soft and normoactive bowel sounds; Absent tenderness *Routine Rectal Exam Rectal:: deferred *Routine Genitalia Exam Genitalia:: deferred *Routine Extremities Exam Extremities: Absent cyanosis, clubbing or edema *Routine Skin Exam Skin: Present warm; Absent rash *Routine Neurological Exam Neurological: Present alert and oriented X3 Assessment and Plan *Assessment and plan (1) Heartburn: Status: Acute Category: Medical Code(s): R12 - Heartburn (2) Choking: Status: Acute Category: Medical Code(s): T17.308A - Unspecified foreign body in larynx causing other injury, initial encounter (3) Bloating: Status: Acute Category: Medical Code(s): R14.0 - Abdominal distension (gaseous) (4) Belching: Status: Acute Category: Medical Code(s): R14.2 - Eructation (5) GERD (gastroesophageal reflux disease): Status: Acute Category: Medical Code(s): K21.9 - Gastro-esophageal reflux disease without esophagitis Plan A/P: 1. GERD/heartburn with bloating, belching and some choking is the preprocedural diagnosis. The patient will be anesthetized/sedated using MAC sedation. The patient has been seen and examined. Cardiac and lung assessment prior to the examination is stable. Proceed with planned diagnostic EGD.
--- NOTE | 2025-04-02 07:10 | P.PCN_ITS ---
[facility] Procedure Note Date: 04/02/25 Time: 13:18 Procedure Note:: Upper Endoscopy Procedure Report: Esophagogastroduodenoscopy with cold biopsies and TTS balloon dilation Endoscopost: Pranav Rand II, MD Referring Physician: Esdras Cobos DO Date of Procedure: April 02, 2025 Equipment: Olympus GIF-1100 standard upper endoscope Sedation: MAC sedation Indications: Mr. James is a 44-year-old gentleman who is here for diagnostic EGD secondary to significant heartburn, bloating and belching. He has had a heartburn and reflux for about 15 years. Over the last several years he has tried omeprazole, Protonix and Pepto-Bismol. He has been on sucralfate daily and famotidine twice daily. He quit drinking carbonated beverages 4 years ago. He is still having breakthrough symptoms 2 or 3 times weekly. He does occasionally get choked on his own saliva but does not have any true dysphagia. He does have some globus sensation. He also reports obstipation/incomplete defecation despite using a combined fiber bowel regimen (MiraLAX plus Metamucil). This is his first upper endoscopy. The examination is deemed medically necessary for diagnostic EGD. Procedure: Prior to the procedure, a history and physical exam was performed, and patient's medications and allergies were reviewed. The risks, benefits and alternatives of the sedation and procedure were discussed with the patient. All questions were answered and informed consent was obtained. The patient was brought to the procedure room. Patient identification and proposed procedure were verified by the physician and the nurse. The patient was placed in a left lateral decubitus position and the scope was passed under direct vision. Throughout the procedure, the patient's blood pressure, pulse, and oxygen saturations were monitored continuously. The upper GI endoscopy was accomplished without difficulty. The patient tolerated the procedure well. Findings: The scope was passed directly into the upper esophagus and advanced to the third portion of the duodenum. The post bulbar duodenum, ampulla and duodenal bulb were normal with normal mucosa and conniventes. A cold biopsy was taken from the second portion of the duodenum for the disaccharidase assay. The scope was withdrawn through a normal duodenal bulb and pylorus into the stomach. There was bile reflux with moderate linear reactive gastropathy of the antrum and body of the stomach. There were a few erosions in the antrum (rule out NSAIDs). Upon retroflexion there was no hiatal hernia. Cold biopsies were taken from the antrum and lesser curvature.. The scope was then withdrawn into the esophagus. There was no evidence of reflux esophagitis or Lorenzana's. There was no evidence of any esophageal ring, stricture, web, corrugation, furrowing or candidiasis. There was no inlet patch. There were strong tertiary contractions and evidence of moderate esophageal dysmotility. The entire esophagus was dilated to 60 Fijian/20 mm with a TTS hydrostatic balloon. There was some resistance at the cricopharyngeus. The remainder of the esophageal mucosa was normal. Impression: 1. Nonerosive GERD with moderate esophageal dysmotility and cricopharyngeal spasm status post dilation to 20 mm 2. Bile reflux with moderate linear reactive gastropathy/erosive gastropathy Plan: I will discuss the findings with the patient and family. He does have primarily bile reflux which is gas driven reflux. We will discuss treatment opt ions. I will check the disaccharidase assay and cold biopsies.
[2025-04-02 12:14] VITALS: BP 121/85; PULSE 69; RESP 16; TEMP 36.3; O2SAT 97
[2025-04-02] MEDS: LACTATED RINGERS 1000ML 1,000 ML 50 ML IV (12:30)
--- NOTE | 2025-04-02 12:39 | EXP.ANES.CKL ---
[facility] Disclaimer: The information contained in this section may have been updated after the patient was seen, as this information can be updated by other users. Medical History Fistula Acute maxillary sinusitis Deviated nasal septum Chronic sinusitis Fall Concussion Establishing care with new doctor, encounter for Viral respiratory illness Screening for HIV (human immunodeficiency virus) Encounter for HCV screening test for low risk patient Cough Acute effusion of both middle ears Laceration Conjunctivitis Major depressive disorder Generalized anxiety disorder Exposure to COVID-19 virus Viral syndrome Laceration Bronchitis Sinusitis Renal colic on right side Surgical History Hx of colonoscopy History of cholecystectomy History of tonsillectomy and adenoidectomy Family History Other Alpha 1-antitrypsin PiMS phenotype Bladder cancer Thyroid cancer Social History Smoking Status: Never smoker alcohol intake: current alcohol intake frequency: a few times a week substance use type: denies use current occupational status: employed Travel in the last 8 weeks?: None number of children: 1 caffeine: No Have you lived/traveled outside [place] in past 30 days?: No Contact w/someone who lives/traveled outside US past 30 days?: No Exposure to someone with infectious disease in past 14 days?: No Do you have a fever (greater than 100.4 F or 38 C)?: No Have you tested positive for COVID-19?: No Exposed to someone with COVID-19 in past 14 days?: No Do you have a sore throat?: No Do you have a cough?: No Do you have any weakness?: No Are you experiencing any nausea/vomitting?: No Do you have any diarrhea?: No Are you experiencing any unusual bleeding?: No Do you have any muscle aches/pain?: No Do you have any abdominal pain?: No Are you experiencing loss of taste or smell?: No [facility] Anesthesia Checklist Patient Identification Patient Identification: Arm Band and Verbal (Name & ) Structural Data Admitted From: Home Planned Operative Procedure/s: EGD Consent for Planned Operative Procedure(s) Verified: Yes Verified Documents: Surgical Consent and History and Physical NPO Status Verified Time NPO: 00:00 Additional verifications Anesthesia Reactions: No Airway Assessment Mallampati Score:: Class II Dentition: Good Dentition Neurological Assessment Level of Consciousness: Awake, Alert and Appropriate Hx Seizures: No Anesthesia Plan Anesthesia Risk discussed: Yes Anesthesia Plan: Verified ASA Class: II Anesthesia Type: MAC
[2025-04-02 13:18] VITALS: BP 119/76; PULSE 73; RESP 16; TEMP 36.1; O2SAT 96
[2025-04-02 13:28] VITALS: BP 127/80; PULSE 70; RESP 16; O2SAT 97
[2025-04-02 13:38] VITALS: BP 126/73; PULSE 96; RESP 16; O2SAT 96
[2025-04-02 13:44] VITALS: BP 126/71; PULSE 86; RESP 16; O2SAT 97
[2025-04-06 12:09] LABS: Interpretation Notes (.); Lactase 13.15 (>/= 14.0); Maltase 109.51 (>/= 110.0); Palatinase 6.73 (>/= 8.5); Reference Notes (.); Sucrase 20.8 (>/= 25.0)
== END 2025-04-02 13:48 | disposition home or self-care (01) ==
PROVIDERS: PCP Internal Medicine; Visit Provider Internal Medicine Gastroenterology
PROC: 0DJ08ZZ Inspection of Upper Intestinal Tract, Via Natural or Artificial Opening Endoscopic (ICD-10-PCS; CPT 43239; principal; 2025-04-02 13:00)
DX: K29.50 Unspecified chronic gastritis without bleeding (principal); K25.9 Gastric ulcer, unspecified as acute or chronic, without hemorrhage or perforation; K21.9 Gastro-esophageal reflux disease without esophagitis; K22.4 Dyskinesia of esophagus; F41.1 Generalized anxiety disorder; F32.9 Major depressive disorder, single episode, unspecified; Z88.5 Allergy status to narcotic agent; Z88.0 Allergy status to penicillin; Z88.2 Allergy status to sulfonamides; Z88.8 Allergy status to other drugs, medicaments and biological substances; Z79.52 Long term (current) use of systemic steroids; Z79.899 Other long term (current) drug therapy
CPT/HCPCS: 43239; 43249; 82657; C1726; J2003; J2704; J7120

== ENCOUNTER 2025-04-19 18:58 | Emergency (ER) | payer OTHER, SELFPAY ==
[2025-04-19] VITALS (8 sets, daily range): BP systolic 106–144; BP diastolic 52–95; PULSE 67–85; RESP 14–21; TEMP 36.7–36.8; O2SAT 18–100; BMI 26.4
--- OUTSIDE RECORDS SUMMARY | 2025-04-19 19:12 | XMS_ITS | Clinical Summary ---
Author Organization [facility] yste Address [address] [place] [address] Care Team Providers Care Offset Press Operator Name Role Phone Unavailable Primary Care Provider Unavailabl e Social History Tobacco Use Types Packs/Day Years Used Date Smoking Tobacco: Never Assessed Abuse Screen Answer Date Recorded Unsafe at Home or Work/School Not on file Feels Threatened by Someone? Not on file 03/2023 Does Anyone Keep You from Co ntacting Others or Doint Things Outside the Home? Not on file 04/17/2023 Physical Sign of Abuse Present Not on file 1 Housing Stability Answer Date Recorded Current Living Arrangements Not on file 03/2023 Potentially Unsafe Housing Conditions Not on gwen e 04/17/2023 Family and Community Support Answer Kael e Recorded Help with Day-to-Day Activities Not on file 04/17/2023 Lonely or Isolated Not on file 04/17/2023 Employment Answer Date Recorded Do you want help finding or keeping work or a lorena b? Not on file 04/17/2023 Disabilities Answer Date Recorded Concentrating, Remembering, or Making Decisions Difficulty Not on file 04/17/2023 Doing Errands Independently Difficulty Not on fi le 04/17/2023 Education Answer Date Recorded Help with school or training? Not on file Preferred Language Not on file 04/17/2023 Sex and Gender Information Value Date Recorded Sex Assigned at Not on file Legal Sex Male 11:50 AM EDT Gender Identity Not on file Sexual Orientation Not on file Plan of Treatment Upcoming Encounters Date Type Department Care Team (Late st Contact Info) Description 04/28/2025 10:00 AM EDT Appointment [facility] [address] [facility] [address] [place] [address] N[facility] Br[facility] Health Maintenance Due Date Last Done Comments TDAP/TD VACCINES (1 - Tdap) 11/02/1999 ANNUAL PHYSICAL 01/31/2024 HEPATITIS C SCREENING 01/31/2024 INFLUENZA VACCINE 02/07/2025 Pneumococcal Vaccine 0-49 Aged Out No longer eligible based on patient's age to complete this topic
--- NOTE | 2025-04-19 19:21 | CT_ITS ---
PROCEDURE INFORMATION: Exam: CT Abdomen And Pelvis With Contrast Exam date and time: 04/19/2025 8:05 PM Age: 44 years old Clinical indication: Other: L ureteral stone vs. Diverticulitis TECHNIQUE: Imaging protocol: Computed tomography of the abdomen and pelvis with contrast. Radiation optimization: All CT scans at this facility use at least one of these dose optimization techniques: automated exposure control; mA and/or kV adjustment per patient size (includes targeted exams where dose is matched to clinical indication); or iterative reconstruction. Contrast material: ISOVUE; Contrast volume: 75 ml; Contrast route: IV; COMPARISON: CT ABDOMEN PELVIS WO CON 03/02/2020 3:57 AM FINDINGS: Liver: Unremarkable. No mass. Gallbladder and biliary ducts: Surgically absent gallbladder without biliary ductal dilatation. Pancreas: Unremarkable. No ductal dilation. Spleen: Unremarkable. No splenomegaly. Adrenal glands: Unremarkable. No mass. Kidneys and ureters: 0.6 cm left ureteropelvic junction calculus with proximal hydronephrosis. 0.2 cm nonobstructive left renal calculus. No right nephroureterolithiasis or hydroureter. Stomach and bowel: Nonobstructive fluid-filled loops of stomach and small bowel. Appendix: Not visualized. No obvious pericecal fat stranding. Intraperitoneal space: Unremarkable. No free air. No significant fluid collection. Vasculature: Unremarkable. No abdominal aortic aneurysm. Lymph nodes: Unremarkable. No enlarged lymph nodes. Urinary bladder: Unremarkable as visualized. Reproductive: Unremarkable as visualized. Bones/joints: No acute findings. Soft tissues: Unremarkable. IMPRESSION: 1. Left ureteropelvic junction calculus with hydronephrosis. Nonobstructive left renal calculus. 2. Nonobstructive fluid-filled stomach and bowel loops. Correlate for low-grade gastroenteritis symptoms.
[2025-04-19 19:30] LABS: Microscopic, Urine URINE MICROSCOPIC (MICROSCOPIC)
[2025-04-19 19:32] LABS: Color,Urine YELLOW (Yellow); Glucose,Urine (UA) Negative (Negative); Ketones,Urine 2+ (Negative); Leukocyte Esterase,Urine Negative (Negative); PH,Urine 7.5 (5.0-8.5); Protein,Urine 1+ (Negative); Specific Gravity, Urine 1.015 (1.005-1.030); Urobilinogen,Urine 1.0 EU/dl (0.2)
[2025-04-19 19:33] LABS: Alanine Aminotransferase 32 U/L (12-78); Albumin Level 4.7 g/dl (3.5-5.0); Albumin/Globulin Ratio 1.8 (1.1-1.8); Alkaline Phosphatase 112 U/L (38-126); Anion Gap 18.5 mEq/L (5-15); Aspartate Amino Transferase 41 U/L (17-59); Bilirubin,Total 1.8 mg/dl (0.2-1.3); Blood Urea Nitrogen 21 mg/dl (9-20); Calcium 9.6 mg/dl (8.4-10.2); Carbon Dioxide 22 mmol/L (22.0-30.0); Chloride 102 mmol/L (98-107); Creatinine Clearance Estimated 77 mL/min (50-200); Creatinine,Serum 1.40 mg/dl (0.66-1.25); Estimated Glomerular Filt Rate 55 ml/min (>60); GFR (African American) 67 ML/MIN (>60); Globulin 2.6 g/dL (1.3-3.2); Glucose 149 mg/dl (74-100); Lipase 30 U/L (23-300); Potassium 4.5 mmoL/L (3.5-5.1); Sodium 138 mmol/L (136-145); Total Protein,Serum 7.3 g/dl (6.3-8.2)
[2025-04-19 19:35] LABS: Hematocrit 48.6 % (42.0-52.0); Hemoglobin 17.7 g/dL (14.1-18.0); Immature Granulocytes % 0.6 %; Mean Corpuscular HGB Conc 36.4 g/dL (31.8-35.4); Mean Corpuscular Hemoglobin 33.2 pg (27.0-31.2); Mean Corpuscular Volume 91.2 fl (80-94); Nucleated Red Blood Cells % 0 %; Platelet Count 251 K/mm3 (142-424); Red Blood Count 5.33 M/mm3 (4.60-6.20); Red Cell Distribution Width-SD 38.5 fL; White Blood Count 11.2 K/mm3 (4.8-10.8)
[2025-04-19 19:38] LABS: Bilirubin,Urine 1+ (Negative)
[2025-04-19 19:40] LABS: Bacteria,Urine Trace /lpf; RBC,Urine 50-100 #/hpf (0-3); Squamous Epithelial Cell,Urine Occasional #/hpf (0-5); WBC,Urine Occasional #/hpf (0-3)
[2025-04-19] MEDS: KETOROLAC 30MG/ML VIAL 30 MG IV (19:40)
[2025-04-19] MEDS: ONDANSETRON 4MG/2ML VIAL 4 MG IV (19:40)
[2025-04-19] MEDS: HYDROMORPHONE 2MG/ML SYRINGE 1 MG IV (19:40)
--- NOTE | 2025-04-19 19:41 | ED_ITS ---
Discharge Plan Disposition Patient Disposition: Home, Self-Care Condition: Good Prescriptions Prescriptions: New ketorolac 10 mg tablet 10 mg PO Q8H PRN (Reason: pain) 5 Days Qty: 15 0RF oxycodone 5 mg tablet 5 mg PO Q8H PRN (Reason: pain) Qty: 12 0RF tamsulosin 0.4 mg capsule 0.4 mg PO DAILY Qty: 14 0RF No Action prednisone 20 mg tablet 20 mg PO BID Qty: 14 0RF Rx Instructions: Take two tablets on days 1-4. Take one tablet daily on days 5-8. On days 9-12 take one half tablet. pseudoephedrine HCl 30 mg tablet 60 mg PO Q6H PRN (Reason: nasal congestion) Qty: 30 1RF Rx Instructions: Start with one tablet, increase to two tablets per dose if one not effective bupropion HCl [Wellbutrin SR] 200 mg tablet sustained-release 12 hr 200 mg PO BID Qty: 180 3RF buspirone 15 mg tablet 15 mg PO TID Qty: 270 3RF famotidine 20 mg tablet See Rx Instructions .ROUTE .COMPLEX Qty: 180 3RF Dose Instruction: Take 1 tablet by mouth twice daily Rx Instructions: Take 1 tablet by mouth twice daily levocetirizine 5 mg tablet 5 mg PO DAILY Qty: 30 2RF promethazine-DM 6.25-15 mg/5 mL syrup 5 ml PO Q4-6H PRN (Reason: cough) Qty: 118 1RF phentermine [Adipex-P] 37.5 mg tablet 37.5 mg PO DAILY Qty: 30 0RF Rx Instructions: must administer 30 minutes before or 1-2 hours after breakfast Sucraid 8,500 unit/mL solution 2 ml PO 6XD Qty: 360 12RF Rx Instructions: 2mL by mouth with meals/snacks up to 6XD Referrals Follow up/Referrals: Esdras Cobos DO [Primary Care Provider, Family Practice] - See instructions Activity Restrictions/Add. Instructions Additional Instructions/Restrictions: You may take Toradol every 8 hours for pain. If you have breakthrough pain you may take Oxycodone. Please take Tamsulosin daily to help with passage of the stone. Please return to the emergency department if you have new or worsening symptoms including fever, worsening urinary symptoms, or inability to pass urine. I want you to call Dr. Castillo's clinic at [facility] in [place] at [phone] to make an appointment for this week. Their clinic is located at [address], [address], [place] [address]. Their fax number is [phone]. Clinical Impressions Clinical Impression: Calculus of proximal left ureter Instructions Patient Instructions: DI for Acute Abdominal Pain Print Language Print Language: Norwegian Discharge ED Provider: Edward Howell Adult HPI General Chief complaint: Abdominal Pain Stated complaint: left abdominal pain and back pain Time Seen by Provider: 04/19/25 19:13 Mode of Arrival: Ambulatory Source of Information: Patient and Spouse Description of Symptoms (Recalled from ER Triage Doc. by RN): patient presents to the ED for 04/18 left flank pain that radiates around to the left side of his abdomen. patient has a history of kidney stones and stated that this all started today around 3pm while hunting History of Present Illness HPI narrative: This is a 44-year-old male patient, with past medical history of hypertension, GERD, anxiety, and cholecystectomy, who is presenting to the emergency department today for evaluation of left flank pain. Patient states that a couple of hours ago he began experiencing sharp left flank pain that is now radiating into the left side of his abdomen. He states that he has had multiple kidney stones in the past but these generally occur on the right side. He states that he has never had pain from a kidney stone that is quite this severe. He has had no overt hematuria, dysuria, or urinary frequency. No difficulty with aches. His bladder. He is not having any diarrhea but he is having nausea and vomiting. No hematochezia or melena. No hematemesis. Related Data Previous Rx's ?Medication ?Instructions ?Recorded phentermine 37.5 mg tablet 37.5 mg PO DAILY #30 tabs 0 02/11/25 (Adipex-P) bupropion HCl 200 mg tablet,12 hr 200 mg PO BID #180 e a 03/26/25 sustained-release (Wellbutrin SR) buspirone 15 mg tablet 15 mg PO TID #270 tabs 03/26 famotidine 20 mg tablet See Rx Instructions .Route 0 03/26/25 .COMPLEX #180 tabs levocetirizine 5 mg tablet 5 mg PO DAILY #30 tabs 03/10 01/31 prednisone 20 mg tablet 20 mg PO BID #14 tabs promethazine-DM 6.25 mg-15 mg/5 mL 5 ml PO Q4-6H PRN c ough #118 mL 03/26/25 oral syrup pseudoephedrine HCl 30 mg tablet 60 mg (2 x 30 mg) PO Q6H PRN nasal 03/26/25 congestion #30 tabs sacrosidase 8,500 unit/mL oral 2 ml PO 6XD #360 mL 10/01 solution (Sucraid) ketorolac 10 mg tablet 10 mg PO Q8H PRN pain 5 days #15 04/19/25 tabs oxycodone 5 mg tablet 5 mg PO Q8H PRN pain #12 tab s 04/19/25 tamsulosin 0.4 mg capsule 0.4 mg PO DAILY #14 caps 06/03 Allergies Allergy/AdvReac Type Severity Reaction Status Date / Time erythromycin base Allergy Unknown Rash Verified 04/02/25 12:16 (ERYTHROMYCIN BASE) Penicillins (PENICILLINS) Allergy Unknown Rash Verified 04/02/25 12:16 Sulfa (Sulfonamide Allergy Unknown Rash Verified 04/02/25 12:16 Antibiotics) (SULFA (SULFONAMIDE ANTIBIOTICS)) codeine (CODEINE) AdvReac Mild Rash Verified 04/02/25 12:16 ALCOHOL IN COUGH MEDS Allergy Unknown NA-HALLUCIN Uncoded 03[facility]26[facility]25 [facility]:02 [facility] Disclaimer: The information contained in this section may have been updated after the patient was seen, as this information can be updated by other users. Medical History Fistula Acute maxillary sinusitis Deviated nasal septum Chronic sinusitis Fall Concussion Establishing care with new doctor, encounter for Viral respiratory illness Screening for HIV (human immunodeficiency virus) Encounter for HCV screening test for low risk patient Cough Acute effusion of both middle ears Laceration Conjunctivitis Major depressive disorder Generalized anxiety disorder Exposure to COVID-19 virus Viral syndrome Laceration Bronchitis Sinusitis Renal colic on right side Surgical History Hx of colonoscopy History of cholecystectomy History of tonsillectomy and adenoidectomy Family History Other Alpha 1-antitrypsin PiMS phenotype Bladder cancer Thyroid cancer Social History Smoking Status: Never smoker alcohol intake: current alcohol intake frequency: a few times a week substance use type: denies use current occupational status: employed Travel in the last 8 weeks?: None number of children: 1 caffeine: No Have you lived/traveled outside US in past 30 days?: No Contact w/someone who lives/traveled outside US past 30 days?: No Exposure to someone with infectious disease in past 14 days?: No Do you have a fever (greater than 100.4 F or 38 C)?: No Have you tested positive for COVID-19?: No Exposed to someone with COVID-19 in past 14 days?: No Do you have a sore throat?: No Do you have a cough?: No Do you have any weakness?: No Do you have any diarrhea?: No Are you experiencing any unusual bleeding?: No Do you have any muscle aches/pain?: No Do you have any abdominal pain?: No Are you experiencing loss of taste or smell?: No Other Medical History Have you received the Flu Vaccine for this season: No Have you received the Pneumonia Vaccine: No ROS Obtained: Yes Systems reviewed as appropriate & no additional complaints except as documented Physical Exam General General appearance: other (See MDM) Respiratory Respiratory exam: Present other (See MDM) Cardiovascular Cardiovascular exam: Present other (See MDM) Neurological Exam Neurological exam: Present other (See MDM) Medical Decision Making Medical Records Medical records reviewed: Yes I reviewed the patient's medical records. Screening: Per USPSTF and CDC recommendations, given the prevalence of disease in our region, it is our hospital?s policy to screen for HIV and viral Hepatitis for all patients aged 18 and over and those with ongoing risk factors. Vish Inquiry Pt receiving controlled substance: Yes Vish was queried for this patient: Yes Risks and benefits of using a controlled substance: were discussed with pt by me Vital Signs: 04/19/25 19:03 04/19/25 19:30 04/19/25 20:30 Temperature 98.2 F Temperature Source Oral Pulse Rate 67 78 Pulse Rate [Right Radial] 81 Respiratory Rate 15 14 19 Blood Pressure 119/85 121/78 Blood Pressure [Right Arm] 144/95 H Blood Pressure Mean [Right Arm] 111 Blood Pressure Source [Right Arm] Automatic Cuff Blood Pressure Position [Right Arm] Sitting 02 Sat by Pulse Oximetry 99 100 96 Oxygen Delivery Method Room Air 04/19/25 21:00 04/19/25 21:30 04/19/25 22:00 Temperature Temperature Source Pulse Rate 85 79 80 Pulse Rate [Right Radial] Respiratory Rate 21 19 15 Blood Pressure 110/72 117/69 112/72 Blood Pressure [Right Arm] Blood Pressure Mean [Right Arm] Blood Pressure Source [Right Arm] Blood Pressure Position [Right Arm] 02 Sat by Pulse Oximetry 95 97 96 Oxygen Delivery Method 04/19/25 22:30 Temperature Temperature Source Pulse Rate 70 Pulse Rate [Right Radial] Respiratory Rate 18 Blood Pressure 106/52 L Blood Pressure [Right Arm] Blood Pressure Mean [Right Arm] Blood Pressure Source [Right Arm] Blood Pressure Position [Right Arm] 02 Sat by Pulse Oximetry 96 Oxygen Delivery Method Lab Data Lab Results 04/19/25 19:15: WBC 11.2 H, RBC 5.33, Hgb 17.7, Hct 48.6, MCV 91.2, MCH 33.2 H, MCHC 36.4 H, RDW 11.5, Plt Count 251, MPV 9.6, Neut % (Auto) 90.3 H, Lymph % (Auto) 2.7 L, [place] % (Auto) 5.8, Eos % (Auto) 0.2, Baso % (Auto) 0.4, Neut # (Auto) 10.2 H, Lymph # (Auto) 0.3 L, [place] # (Auto) 0.7, Eos # (Auto) 0.0, Baso # (Auto) 0.0, Total Counted 100, Neutrophils % (Manual) 87 H, Lymphocytes % (Manual) 8 L, Monocytes % (Manual) 4, Eosinophils % (Manual) 1, Platelet Estimate Normal, RBC Morphology Normal, Sodium 138, Potassium 4.5, Chloride 102, Carbon Dioxide 22, Anion Gap 18.5 H, BUN 21 H, Creatinine 1.40 H, Estimated Creat Clear 77, Estimated GFR 55 L, Est GFR ( Amer) 67, Glucose 149 H, Calcium 9.6, Total Bilirubin 1.8 H, AST 41, ALT 32, Alkaline Phosphatase 112, Total Protein 7.3, Albumin 4.7, Globulin 2.6, Albumin/Globulin Ratio 1.8, Lipase 30 04/19/25 19:24: Urine Color Yellow, Urine Appearance Sl cloudy, Urine pH 7.5, Ur Specific Riley 1.015, Urine Protein 1+ A, Urine Glucose (UA) Negative, Urine Ketones 2+, Urine Blood 3+ A, Urine Nitrate Negative, Urine Bilirubin 1+ A, Urine Urobilinogen 1.0, Ur Leukocyte Esterase Negative, Urine RBC 50-100, Urine WBC Occasional, Ur Squamous Epith Cells Occasional, Urine Bacteria Trace 04/19/25 21:10: Lactate 1.2 04/19/25 19:15 04/19/25 19:15 Orders (Tests/Meds): ED MEDICATIONS Generic Name Dose Route Start Last Admin Trade Name Freq PRN Reason Stop Dose Admin Tamsulosin HCl 0.4 mg 04/19/25 21:00 04/19/25 20:32 Tamsulosin 0.4mg Capsule PO 05/19/25 20:59 Not Given HS SHAUNNA Discontinued Medications Generic Name Dose Route Start Last Admin Trade Name Freq PRN Reason Stop Dose Admin Hydromorphone HCl 1 mg 04/19/25 19:21 04/19/25 19:40 Hydromorphone 2mg/Ml Syringe IV 04/19/25 19:22 1 mg ONCE ONE Administration Lactated Ringer's 1,000 mls @ 999 mls/hr 04/19/25 19:40 04/19/25 21:13 Lactated Ringer's 1000 Ml Bag IV 04/19/25 20:40 Infused .Q1H1M ONE Infusion Iopamidol 75 ml 04/19/25 20:03 04/19/25 20:04 Iopamidol-370 (76%);100ml Bottle IV 04/19/25 20:04 75 ml ONCE ONE Administration Ketorolac Tromethamine 30 mg 04/19/25 19:21 04/19/25 19:40 Ketorolac 30mg/Ml Vial IV 04/19/25 19:22 30 mg ONCE ONE Administration Ondansetron HCl 4 mg 04/19/25 19:21 04/19/25 19:40 Ondansetron 4mg/2ml Vial IV 04/19/25 19:22 4 mg ONCE ONE Administration Sodium Chloride 10 ml 04/19/25 20:03 04/19/25 20:04 Sodium Chloride 0.9% 10ml Syr (Rad Only) IV 04/19/25 20:04 10 ml ONCE ONE Administration ORDERS Category Date Time Status CT abdomen pelvis w con Stat Cat Scan 04/19/25 19:21 Completed CBC w/Auto Diff [Complete Blood Count Auto Diff] Stat Lab 04/19/25 19:15 Completed CMP [Comprehensive Metabolic Panel] Stat Lab 04/19/25 19:15 Completed Lactic Acid Stat Lab 04/19/25 21:10 Completed Lipase Stat Lab 04/19/25 19:15 Completed Urinalysis and Microscopic Stat Lab 04/19/25 19:24 Completed Urine Culture Stat Micro 04/19/25 19:24 Received Medical Decision Narrative: In summary, this is a 44-year-old male patient who is presented to the emergency department today for evaluation of left-sided flank pain that is radiating into the left lower quadrant of the abdomen. He denies urinary symptoms and diarrhea but he is having nausea and vomiting associated with his pain. Patient's comorbidities include a past medical history of multiple kidney stones on the right side, as well as hypertension, GERD, and cholecystectomy. On initial evaluation of the patient he appears very uncomfortable and is experiencing lots of pain. He is overall nontoxic in appearance. He is hemodynamically stable and saturating well on room air. He is afebrile and neurologically intact. On physical examination he has exquisite left flank tenderness to percussion. He also has tenderness in the left side of the abdomen diffusely. No peritonitis. No lower extremity erythema or edema. Heart and lungs are clear to auscultation bilaterally. Differential diagnosis includes left sided ureterolithiasis, pyelonephritis, urinary tract infection, diverticulitis, intra-abdominal abscess, bowel obstruction, among others. Workup was initiated with hematologic labs as well as a urinalysis, urine culture, and a CT scan of the abdomen and pelvis with contrast. Initial interventions included 1 mg of Dilaudid, 30 mg of Toradol, and 4 mg of Zofran. Labs were personally turbid by me and demonstrate a mild elevation of his creatinine from 1.3-1.4. No significant electrolyte derangements. He has a mild leukocytosis of 11.2. Urinalysis shows 3+ blood as well as 1+ bilirubin and 1+ protein. There is no leukocyte esterase or nitrates. He has 50-100 white cells, trace bacteria, and trace white cells. This is not consistent with urinary tract infection. Given that the patient has blood in his urine my pretest probability for urinary stone has increased. Therefore I treated the patient with 0.4 mg of tamsulosin. I have personally interpreted the patient's CT scans which show that there is a ureteral calculus at the level of the ureteropelvic junction. Official radiology read is in agreement and further characterizes this is a 6 mm stone. They state that there is associated hydronephrosis I did have an interactive discussion with Dr. Castillo at [facility] urology in [place]. He stated there was no indication to transfer the patient as he is not demonstrating signs of sepsis and there is no indication for emergent stone removal. He has given me his clinic information to provided the patient so that he can follow him up this week in clinic. At this time the patient's pain is controlled and he is comfortable with this plan. We will send him home with a prescription for Toradol as well as oxycodone and tamsulosin. I have instructed him to return to the emergency department if he has new or worsening symptoms including fever, worsening urinary symptoms, or inability to pass urine Critical Care Critical Care Time Critical Care Time: No
[2025-04-19] MEDS: LACTATED RINGERS 1000ML 1,000 ML 999 ML IV (19:54)
[2025-04-19] MEDS: TAMSULOSIN 0.4MG CAPSULE 0.4 MG PO (19:55)
[2025-04-19] MEDS: IOPAMIDOL-370 (76%);100ML BOTTLE 75 ML IV (20:04)
[2025-04-19] MEDS: SODIUM CHLORIDE 0.9% 10ML SYR (RAD ONLY) 10 ML IV (20:04)
[2025-04-19 20:43] LABS: RBC Morphology Normal; Total Cells Counted 100
--- NOTE | 2025-04-19 21:55 | PC.NURSE ---
Called [facility] for possible transfer
== END 2025-04-19 23:04 | disposition home or self-care (01) ==
PROVIDERS: Emergency Provider Student in an Organized Health Care Education/Training Program; PCP Internal Medicine
DX: N13.0 Hydronephrosis with ureteropelvic junction obstruction (principal); R10.A2 Flank pain, left side; R10.32 Left lower quadrant pain; N20.0 Calculus of kidney
CPT/HCPCS: 74177; 80053; 81001; 83605; 83690; 85007; 85025; 87086; 96361; 96374; 96375; 99285; J1171; J1885; J2405; J7120; Q9967

== ENCOUNTER 2025-07-04 09:07 | Outpatient (CLI) | payer OTHER, SELFPAY ==
[2025-07-04 20:34] LABS: Influenza A, PCR Not Detected (NotDetected); Influenza B, PCR Not Detected (NotDetected)
[2025-07-04 21:47] LABS: Coronavirus 19, PCR Detected (NotDetected)
--- OUTSIDE RECORDS SUMMARY | 2025-07-07 09:15 | XMS_ITS | Clinical Summary ---
Author Organization [facility] yste Address [address] [place] [address] Care Team Providers Care Cheese Specialist Name Role Phone Provider, No Known Primary Care Provider Unavail able Social History Tobacco Use Types Packs/Day Years [...] Orientation Not on file Plan of Treatment Health Maintenance Due Date Last Done Comments ANNUAL PHYSICAL 01/31/2024 HEPATITIS C SCREENING 01/31/2024 INFLUENZA VACCINE 02/07/2025 TDAP/TD VACCINES (3 - Td or Tdap) 02/22/2031 02/22/2021, 10/18/1995 Pneumococcal Vaccine 0-49 Aged Out No longer eligible based on patient's age to complete this topic Insurance * Guarantor: Mikhail James Account Type Relation to Patient Date of Phone Billing Address Personal/Family Self [address] [place] [address] [place] Care Teams Cheese Specialist Relationship Specialty Start Date End Date Provider, No Known [facility] [place] [address] PCP - General 04/28/25
== END 2025-07-04 23:59 | disposition home or self-care (01) ==
LOC: LAB.DROPOF 07-07 09:08
PROVIDERS: PCP Internal Medicine; Visit Provider Nurse Practitioner
DX: R52 Pain, unspecified (principal)
CPT/HCPCS: 87636